=== PATIENT | male | born 1935 | race Caucasian/White ===

== ENCOUNTER 2017-12-20 20:37 | Inpatient (IN) | payer MEDICARE, OTHER ==
[2017-12-20] MEDS ORDERED: NS 0.9% 1000 ML* 1,000 ML IV ONE (21:32)
--- NOTE | 2017-12-20 22:00 | RAD ---
HISTORY: Altered mental status COMPARISONS: June 30, 2017 VIEWS: 1: frontal portable view of the chest at 9:43 PM. The patient is slightly obliqued to the right. FINDINGS: LINES AND TUBES: None. CARDIOMEDIASTINAL SILHOUETTE: The cardiomediastinal silhouette is stable. PLEURA: The costophrenic angles are sharp. No pleural abnormalities are noted. LUNG PARENCHYMA: The lung volumes are low. The lungs are clear. ABDOMEN: The upper abdomen is clear. There is no subphrenic gas. BONES AND SOFT TISSUES: No bone or soft tissue abnormalities are noted. IMPRESSION: LOW LUNG VOLUMES. NO ACTIVE CARDIOPULMONARY DISEASE.
[2017-12-20 22:15] LABS: INR 0.89 (0.77-1.02)
[2017-12-20 22:27] LABS: EGFR Non-African American 102.4 (>60)
[2017-12-20 22:32] LABS: ABS Basophils 0 10^3/ul (0-0.2); ABS Eosinophils 0 10^3/ul (0-0.6); ABS Lymphocytes 0.5 10^3/ul (1.0-4.8); ABS Monocytes 0.3 10^3/ul (0-0.8); ABS Neutrophils 2.6 10^3/ul (1.5-7.7); ABS Nucleated RBC 0 10^3/ul; Eosinophil % 0.5 % (0-6); Hematocrit 41 % (42-52); Hemoglobin 13.8 g/dl (14.0-18.0); Lymphocyte % 14.9 % (25-47); Mean Corpuscular HGB Conc 33 g/dl (31-36); Mean Corpuscular Hemoglobin 30 pg (27-31); Mean Corpuscular Volume 91 fL (80-94); Mean Platelet Volume 10.9 um3 (7.4-10.4); Nucleated Red Blood Cells % 0.3; Platelet Count 93 10^3/ul (150-450); Red Blood Count 4.54 10^6/ul (4.0-5.4); Red Cell Distribution Width 18 % (10.5-15); White Blood Count 3.5 10^3/ul (3.5-10.8)
[2017-12-20 22:51] LABS: Urine Appearance Clear; Urine Blood Negative (Negative); Urine Color Yellow; Urine Ketones Trace (Negative); Urine Protein Negative (Negative); Urine Specific Gravity 1.017 (1.010-1.030); Urine Urobilinogen Positive (Negative)
[2017-12-21] MEDS ORDERED: Docusate CAP* 100 MG PO PRN (00:35)
[2017-12-21] MEDS ORDERED: Al Hydrox/Mg Hydrox/Simet LIQ* 30 ML UDC PO PRN (00:35)
[2017-12-21] MEDS ORDERED: Senna TAB PO PRN (00:35)
[2017-12-21] MEDS ORDERED: Acetaminophen TAB* 325 MG PO PRN (00:35)
[2017-12-21] MEDS ORDERED: Ondansetron INJ* 2 MG/ML VIAL IV PRN (00:35)
[2017-12-21] MEDS: Aspirin EC TAB* 81 MG TAB.EC PO SCH ×2 (02:50→09:01)
--- NOTE | 2017-12-21 03:36 | HP ---
CC: Brooks Turner MD * HISTORY AND PHYSICAL: DATE OF ADMISSION: 12/21/17 TIME OF EVALUATION: 0300 PRIMARY CARE PHYSICIAN: Brooks Turner MD CHIEF COMPLAINT: Altered mental status. HISTORY OF PRESENT ILLNESS: This is an 82-year-old male with past medical history of Parkinson's, who presents to the emergency room with his for concern of altered mental status. She states in the past week he has become more drowsy, respond and weak. She states he has been complaining of feeling "oozy" with weakness. He did fall in the bathroom on the . He has been having issues with his activities of daily living. His is now having to help him, get ready and bathe and this is all new in the past week. She also has noticed that his speech and interaction has been more challenging and he is become more confused as well. Normally, he was reading. Now, he has not been reading at all. There were concerns in this past week when the VNS nurse came out to check his blood pressure, it was 76/46, had decided to discontinue the water pill, otherwise no changes in his medications. There has not been any concerns of him eating or choking on his food. He has been doing relatively well with that. He has had some right knee pain, otherwise denies any pain. No URI illness. No fever. No nausea, vomiting, or diarrhea. No urinary incontinence, although the feels like he does not go to the bathroom that often. Otherwise, review of system is limited, but negative. PAST MEDICAL HISTORY: 1. Parkinson's disease followed by Dr. Rouse. 2. Hyperlipidemia. MEDICATIONS: 1. notes he is on carbidopa and levodopa, but is unclear on the dosage. 2. He is on a cholesterol medication. ALLERGIES: No known drug allergies. SOCIAL HISTORY: Patient lives at home with his , Jessica, who is his healthcare proxy. He ambulates with a walker. No history of smoking. He drinks a glass of wine per day. CODE STATUS: He is a DNR/DNI. We will have him fill out the MOLST form. He is a retired medical record librarian. FAMILY HISTORY: Mother at age 50 from an AL. Father in 70s from liver failure. REVIEW OF SYSTEMS: A 14-point review of system as mentioned in the HPI, otherwise negative. PHYSICAL EXAMINATION GENERAL: No acute distress, elderly man with his at the bedside. VITAL SIGNS: Temp 97.1, pulse rate 53, respiratory rate 17, oxygen saturation 97 % on room air, blood pressure 105/76. HEENT: Head: Normocephalic. Pupils are equal and reactive, anicteric. Oropharynx: Mucous membranes moist. NECK: Supple. No lymphadenopathy. RESPIRATORY: Diminished breath sounds. No wheezing, rhonchi, or rales. CARDIAC: Regular rate and rhythm. Soft systolic murmur heard throughout most prominent at the left sternal base. ABDOMEN: Soft, nontender, and nondistended. EXTREMITIES: No clubbing. He has +1 edema, distant pulses. NEUROLOGIC: He is alert and oriented x3. He has generalized symmetric weakness. He has delayed in his speech, but no obvious focal deficit. LABORATORY DATA: White count 3.5, hemoglobin 13.8, hematocrit 41, platelets 93. INR 0.89. Sodium 140, potassium 3.9, chloride 103, bicarb 32, BUN 37, creatinine 0.73, glucose 116, AST 99. Troponin is 0. Urine shows trace ketones. Urine tox is unremarkable. RADIOGRAPHIC DATA: Head CT, there is a 7-mm left thalamic small vessel infarct of indeterminate age, not present on 06/07/16. No hemorrhage, no mass. Chest x-ray, low lung volume, no active cardiopulmonary disease. EKG shows sinus bradycardia with first-degree heart block. ASSESSMENT AND PLAN: This is an 82 year old male with a past medical history of Parkinson's disease, who presents to the emergency room with decline in his ADLs and speech, found to have small infarct indeterminate age. 1. Weakness and decline. Assessment: The patient appears to be overall declining with his ADLs and his speech pattern. He does have an infarct seen on his CAT scan of indeterminate age. It is unclear if this is the inciting event. It is certainly could correspond with it or this is a progression of his Parkinson's. Plan: We will admit him to telemetry overnight. We will start him on a baby aspirin. We will put in for med rec and consult Neurology in the morning for further evaluation. We will also do a bedside nursing swallow, order a PT/OT and PMRU eval. We will hold off and order an MRI as it is not available tomorrow and also order a bladder scan q.6. 2. Chronic medical problems: Parkinson's. As mentioned, we will need to call in for med rec to order his appropriate dose of his carbidopa and levodopa. 3. Hyperlipidemia. We will check a lipid panel. We will put him on atorvastatin low dose in place of his simvastatin for now. 4. FEN: Bedside swallows as well as heart healthy diet. 5. DVT prophylaxis: The patient scores high risk. Placed him on heparin subcu t.i.d. 6. Code status: He confirms he is a DNR/DNI. We will have him fill up the MOLST form. PATIENT TIME: Greater than 60 minutes spent doing the history and physical, more than half the time spent in direct patient contact. [id number]/[facility] #: [id number] ANGY
[2017-12-21] MEDS: Heparin VIAL(*) 5000 UNITS/ML VIAL (FIVE THOUSAND) SUBCUT SCH ×3 (06:02→20:23)
--- NOTE | 2017-12-21 10:56 | RAD ---
Indication: Weakness, confusion. Comparison: June 07, 2016 MRI. Technique: Noncontrast CT vertex of skull through foramen magnum. Report: Moderate prominence of the cerebral sulci reflecting atrophy. Proportional mild prominence of the lateral ventricles. Patent basal cisterns. Decreased density in the periventricular and subcortical white matter while non-specific is most likely due to chronic microangiopathy. Negative for gann matter white matter obscuration, intra or extra-axial hemorrhage, or mass effect. Dense LEFT ocular lens consistent with cataract. Clear visualized paranasal sinuses and mastoid air spaces. No suspicious calvarial or skull base lesions. Unremarkable scalp. IMPRESSION: Involutional change and stigmata of chronic small vessel ischemic disease. No acute intracranial process evident.
[2017-12-21] MEDS: Carbidopa/Levodop 25/100 MG TAB(*) PO SCH (12:35)
[2017-12-21] MEDS: NS 0.9% 1000 ML* 1,000 ML IV SCH (12:59)
--- NOTE | 2017-12-21 14:20 | PN ---
Subjective Date of Service: 12/21/17 Interval History: Patient not oriented and rather lethargic this AM. Denies pain but it is not clear if he is understanding questioning. Discussed with Family, concerned about 40 pound weight loss over the course of the last 6 months. Had slow progressive decline over the last 2 years and then precipitous decline within the last 2 days. Patient had a colonoscopy previously but his does not know when it was and doesn't think there were significant findings but is not sure. Family History: Unchanged from Admission Social History: Unchanged from Admission Past Medical History: Unchanged from Admission Objective Active Medications: Acetaminophen (Tylenol Tab*) 650 mg PO Q4H PRN PRN Reason: FEVER/PAIN Al Hydrox/Mg Hydrox/Simethicone (Maalox Plus*) 30 ml PO Q6H PRN PRN Reason: INDIGESTION Aspirin (Aspirin Ec Low Dose*) 81 mg PO DAILY [facility] Last Admin: 12/21/17 09:01 Dose: 81 mg Atorvastatin Calcium (Lipitor*) 20 mg PO 1700 [facility] Carbidopa/Levodopa (Sinemet 25/100 Tab(*)) 1.5 tab PO 1630 [facility] Carbidopa/Levodopa (Sinemet 25/100 Tab(*)) 2.5 tab PO 0800,1200 [facility] Last Admin: 12/21/17 12:35 Dose: 2.5 tab Carbidopa/Levodopa (Sinemet Cr 50/200(*)) 1 tab.cr PO BEDTIME [facility] Docusate Sodium (Colace Cap*) 100 mg PO BID PRN PRN Reason: CONSTIPATION Heparin Sodium (Porcine) (Heparin Vial(*)) 5,000 units SUBCUT Q8HR [facility] Last Admin: 12/21/17 06:02 Dose: 5,000 units Sodium Chloride (Ns 0.9% 1000 Ml*) 1,000 mls @ 75 mls/hr IV PER RATE [facility] Last Admin: 12/21/17 12:59 Dose: 75 mls/hr Ondansetron HCl (Zofran Inj*) 4 mg IV Q4H PRN PRN Reason: NAUSEA/VOMITING Senna (Senokot Tab*) 1 tab PO BID PRN PRN Reason: CONSTIPATION Vital Signs - 8 hr 12/21/17 12/21/17 07:26 08:00 Temperature 97.0 F Pulse Rate 71 Respiratory 16 16 Rate Blood Pressure 104/62 (mmHg) O2 Sat by Pulse 97 Oximetry Oxygen Devices in Use Now: None Appearance: Patient is an 82yo male who appears stated age and is sitting in the bed in NAD with a visible tremor in his B/L UE. Eyes: No Scleral Icterus, PERRLA Ears/Nose/Mouth/Throat: NL Teeth, Lips, Gums, Clear Oropharnyx, Mucous Membranes Moist Neck: NL Appearance and Movements; NL JVP, Trachea Midline Respiratory: Symmetrical Chest Expansion and Respiratory Effort, Clear to Auscultation Cardiovascular: NL Sounds; No Murmurs; No JVD, RRR, No Edema Abdominal: NL Sounds; No Tenderness; No Distention, No Hepatosplenomegaly Lymphatic: No Cervical Adenopathy Extremities: No Edema, No Clubbing, Cyanosis Skin: No Rash or Ulcers, No Nodules or Sclerosis Neurological: - - Slight right sided facial droop. Left sided biceps reflex 3+, Right sided 2+. Patellar and achilles 1+ B/L. Not able to participate in strength or sensory testing. Result Diagrams: 12/20/17 21:58 12/20/17 21:58 Assess/Plan/Problems-Billing Assessment: Patient is an 82yo male with a PMH for Parkinson's, HLD, HTN who presents with an acute deterioration in his mental status and physical capabilities within the past week. Patient is not improving today and is scheduled for an MRI tomorrow to assess for CVA. - Patient Problems (1) Altered mental status Current Visit: Yes Status: Acute Code(s): R41.82 - ALTERED MENTAL STATUS, UNSPECIFIED SNOMED Code(s): 129244881 Comment: Appreciate Neurology input. Patient has had an acute decrease in his mental and physical capability not consistent with the general clinical course of idiopathic parkinson's disease. Small thalamic CVA read on CT overnight but overread today by radiologist and neurologist. No infections evident on CXR, UA, Skin. CRP and ESR pending. MRI brain tomorrow. Recent decrease in Simemet not likely cause of deterioration. B12, Folate, TSH pending. (2) Parkinsons disease Current Visit: Yes Status: Acute Code(s): G20 - PARKINSON'S DISEASE SNOMED Code(s): 66961166 Comment: Continue Simemet at home dose. Abrupt decline in congnitive functioning not consistent with progression of parkinson's. Follows with Dr. Rouse outpatient. (3) Hyperlipidemia Current Visit: Yes Status: Acute Code(s): E78.5 - HYPERLIPIDEMIA, UNSPECIFIED SNOMED Code(s): 59081584 Comment: Continue Atorvastatin. Lipid Profile pending. (4) Hypertension Current Visit: Yes Status: Acute Code(s): I10 - ESSENTIAL (PRIMARY) HYPERTENSION SNOMED Code(s): 11184960 Comment: History of HTN. Has been hypotensive recently with HCTZ being stopped. (5) Thrombocytopenia Current Visit: Yes Status: Acute Code(s): D69.6 - THROMBOCYTOPENIA, UNSPECIFIED SNOMED Code(s): 517512736 Comment: Platelet count of 93K. Decreased from ~150K in august. Consider discontinuing heparin and ASA if further decrease. (6) DVT prophylaxis Current Visit: Yes Status: Acute Code(s): YBH6424 - SNOMED Code(s): 122473391 Comment: Heparin SubQ. Consider stopping if continued decrease in platelets. (7) DNR (do not resuscitate) Current Visit: Yes Status: Acute Status and Disposition: Admitted inpatient. Discharge when medically stable. May need rehab.
[2017-12-21] MEDS ORDERED: Carbidopa/Levodop 25/100 MG TAB(*) PO SCH (16:30)
[2017-12-21] MEDS: Atorvastatin* 20 MG TAB PO SCH (17:18)
[2017-12-21] MEDS: Carbidopa/Levodop CR 50/200(*) TAB.CR PO SCH (20:26)
--- NOTE | 2017-12-21 21:21 | CONS ---
CC: Dr. uTrner; Dr. Rouse * NEUROLOGY CONSULTATION: DATE OF CONSULT: 12/21/17 REQUESTING PHYSICIAN: Nay Marmolejo MD PRIMARY CARE PHYSICIAN: Dr. Turner. OUTPATIENT NEUROLOGIST: Dr. Rouse. REASON FOR CONSULT: Progressive global decline in particular in mental status. HISTORY OF PRESENT ILLNESS: Kevin Redd is an 82-year-old man with a history of Parkinson's disease, previously treated by Dr. Kessler and now under the care of Dr. Rouse, who presented to the emergency department with his yesterday with progressive decline in his mental status as well as some of his mobility. She states that in the past several days to a week, he is become more lethargic and overall weak. Yesterday, he went upstairs to get rest and when she went upstairs to find him, he was just sitting on the bed, staring straight ahead. Over the past week, she has been having to help him get dressed and also to bathe, which is all new. He seems to be more confused to her as well and she described a period of time where he thought he was supposed to be going to a concert, but was disoriented as to when the concert was going to occur. He previously enjoyed reading and she does not think he is comprehending this any longer. Apparently, he has visiting nursing services and there was some hypotension documented as well and Dr. Marmolejo's note indicates blood pressure was 76/46. Apparently, a diuretic was discontinued. He has otherwise been ambulating with his walker, but quite slowly. In terms of his history of Parkinson's disease, he was initially evaluated in 2015 because of a tremor. He was started on carbidopa/levodopa at that time and the dose has been progressively increased secondary to his symptoms. His states that they feel it was helpful for the tremor which she describes as more of an action than a rest tremor. However, he has had increasing postural instability and was having falls, which necessitated him starting to use a walker as of July of last year. At his last visit with Dr. Rouse on 12/11/17 , he was taking carbidopa/levodopa 25/100 mg 3 tablets at 8 a.m., 2-1/2 tablets at 12 p.m. and 2 tablets at 4:30 p.m. His at that time stated that he seemed more confused and seemed to be doing worse and so Dr. Rouse decreased the morning dose to 2-1/2 tablets and the nighttime dose to 1-1/2 tablets, but also added extended release carbidopa/levodopa 50/200 mg at nighttime. His states that she initially thought this was helpful, but then over the past 2 days, he seemed to be getting more restless at night and was getting up early for unclear reasons. She also mentions that he has had a 30-pound unexplained weight loss over the past 6 months despite a normal appetite. Since he has been admitted, he has not received any carbidopa/levodopa yet because the was unclear on the dosage he was taking during his admission and that he had to wait until [employer] open this morning in order to confirm the dosage. PAST MEDICAL HISTORY: 1. Parkinson's disease. 2. Hyperlipidemia. 3. Osteoarthritis. HOME MEDICATIONS: 1. Simvastatin 10 mg at bedtime. 2. Carbidopa/levodopa 25/100 mg 2.5 in the morning, 2.5 at noon, and 1.5 at dinner. 3. Carbidopa/levodopa CR 50/200 mg 1 tablet at bedtime which was started around 12/11/17. 4. Vitamin D 400 units in the morning. 5. Hydrochlorothiazide 25 mg is also listed on his med rec, but this has not been confirmed yet. In-hospital medications ordered include the above, but also aspirin 81 mg daily which he received down in the ER as well as this morning. He also received a liter of normal saline, but is not on fluids any longer. ALLERGIES: No known drug allergies. FAMILY HISTORY: Mother reportedly from myocardial infarction at age 50 and father in his 70s from liver failure. SOCIAL HISTORY: He lives with his , Jessica who is also his healthcare proxy. He is a retired librarian head. He never smoked cigarettes. His reports he drinks a glass of scotch nightly after she goes to bed, but she does not think it is excessive otherwise. REVIEW OF SYSTEMS: The patient is otherwise not able to significantly contribute, but when questioned directly denies any headache, chest pain, or breathing difficulties. PHYSICAL EXAM: Vital Signs: Temperature 97 degrees, blood pressure 104/62, heart rate 71, oxygen saturation is 97% on room air. He had some low blood pressures measured around 10 p.m. last night at 93/49 and 85/50 with heart rates in the 50s at that time. On general examination, he was sleeping in his hospital bed and woke easily to voice. He has significant hypomimia and mostly lies with his mouth hanging half open. He was able to contribute minimally to the history. He was able to answer with one word answers. For me, he was not able to state his date of or why he was in the hospital or his full name. His skin was warm to touch. There is no significant lower extremity edema. His heart is in regular rate and rhythm with a soft systolic ejection murmur. His lungs appeared clear anteriorly to auscultation. On neurologic examination , his mental status is as described above. His speech is difficult to assess as he has minimal speech output. He was able to follow some simple commands of the neurologic exam. His pupils were equal, round and reactive from 3 to 2 mm bilaterally. He seems to have difficulty initiating smooth pursuits and they were choppy, but full in all directions without any obvious nystagmus. His visual rodrigues were full to threat, but he had difficulty cooperating with either finger counting or confrontational testing. He has significant facial hypomimia with decreased blink and decreased spontaneous facial expression. His facial activation with smile appears mostly symmetric. His mucous membranes are very dry, though his tongue is midline and the palate appears to elevate symmetrically. On motor examination, he has cogwheeling in both upper extremities with some rest tremor noted in the right arm. Both upper extremities are antigravity, but he cannot cooperate with formal strength testing. He was not able to lift either leg antigravity off the bed, but he withdrew both lower extremities briskly to any noxious stimulation. Sensation was intact throughout to noxious stimulation. Reflexes were 2 to 3+ in the upper extremities, 2+ at the knees, difficult to elicit at the ankles. His toes were somewhat difficult to interpret due to withdrawal. When asked to perform [id number], he was not able to touch the examiner's finger with his finger and it was not clear if this was a perceptual difficulty or motor difficulty. He was not ambulated. DIAGNOSTIC STUDIES/LAB DATA: His CBC is notable for hematocrit of 41, hemoglobin of 13.8, platelets of 93 with large platelets noted to be present. The hematopathologist's interpretation is pending. His RDW is elevated at 18. There is no prior CBC in the electronic medical record for comparison. INR is normal. His chemistry panel is notable for a BUN of 37, elevated BUN to creatinine ratio 50.7, hemoglobin A1c of 6, elevated AST of 99, ALT of 37, and alkaline phosphatase of 108. His ammonia was 29. He had normal protein levels. In August 2017, his vitamin B12 was measured and was 243. Urinalysis showed no evidence for infection, but showed trace ketones, positive urobilinogen, squamous epithelial cells present, and hyaline cast is present as well as ascorbic acid. His toxicology screen was negative. I note that a paraneoplastic panel was sent on the serum in August 2017 and this was negative. His brain CT was personally reviewed and shows diffuse atrophy which to my eye appears to be more prominent in the posterior head regions with evidence of some small vessel disease. The remote radiologist overnight interpreted an indeterminate age infarct in the left thalamus, but I think that this is related to averaging the ventricular space on the slice just below the level of the thalamus on this scan. Our radiologist this morning did not interpret any specific infarcts on the CT scan. IMPRESSION AND PLAN: Kevin Redd is an 82-year-old man with a history of Parkinson's disease with progressive decline over the past 1-1/2 to 2 years. He was admitted now with encephalopathy and decline in his ADLs. Compared to previous exam documented by Dr. Rouse in the outpatient record, he appears significantly more parkinsonian to me this morning and this could be related to missed doses of medication secondary to the medication reconciliation not being complete because of uncertainty and dosing at the time that he was admitted. I have spoken with his nurse who is going to give him his noon time dose of carbidopa/levodopa. His CT scan did raise some question of whether there has been a thalamic infarct which could be responsible for his recent decline. We will clarify this further with an MRI scan of the brain tomorrow morning, though I do not think that there is a convincing evidence of a recent infarct on that scan. Otherwise, his picture is notable for some periods of hypotension as well as significant postural instability by history according to the and I questioned whether he could have a Parkinson's-plus syndrome such as multisystem atrophy. Finally, his CBC showed thrombocytopenia and it is unclear whether this is an acute or chronic problem. He has also had an unexplained weight loss recently and it is also unclear whether this is pertinent to his overall picture as well. In addition to the MRI of the brain, I will check a sed rate and a CRP. I have also asked Gerson Hendrix to start him on some gentle fluids because of the profile of his chemistry panel. Tomorrow, we will get baseline CBC from Dr. Turner's office for comparison. Going forward, we will see whether he will benefit from adjustment of his Parkinson's medications as well. [id number]/[facility] #: [id number] ANGY
[2017-12-22] MEDS ORDERED: Acetaminophen SUPP* 650 MG SUPP PR PRN (00:24)
[2017-12-22] MEDS: NS 0.9% 1000 ML* 1,000 ML IV SCH ×4 (03:19→21:34)
[2017-12-22] MEDS: Heparin VIAL(*) 5000 UNITS/ML VIAL (FIVE THOUSAND) SUBCUT SCH (05:40)
[2017-12-22 05:44] LABS: ABS Basophils 0 10^3/ul (0-0.2); ABS Eosinophils 0 10^3/ul (0-0.6); ABS Lymphocytes 0.6 10^3/ul (1.0-4.8); ABS Monocytes 0.6 10^3/ul (0-0.8); ABS Neutrophils 3.9 10^3/ul (1.5-7.7); ABS Nucleated RBC 0 10^3/ul; Eosinophil % 0.2 % (0-6); Hematocrit 35 % (42-52); Hemoglobin 11.8 g/dl (14.0-18.0); Lymphocyte % 12.2 % (25-47); Mean Corpuscular HGB Conc 34 g/dl (31-36); Mean Corpuscular Hemoglobin 30 pg (27-31); Mean Corpuscular Volume 90 fL (80-94); Nucleated Red Blood Cells % 0; Platelet Count 96 10^3/ul (150-450); Red Blood Count 3.92 10^6/ul (4.0-5.4); Red Cell Distribution Width 19 % (10.5-15); White Blood Count 5.2 10^3/ul (3.5-10.8)
[2017-12-22 06:01] LABS: EGFR Non-African American 85.9 (>60)
--- NOTE | 2017-12-22 08:19 | PN ---
Subjective Date of Service: 12/22/17 Interval History: Mr. Redd is only responsive to noxious stimuli this morning. Family History: Unchanged from Admission Social History: Unchanged from Admission Past Medical History: Unchanged from Admission Objective Active Medications: Acetaminophen (Tylenol Supp*) 650 mg MO Q6H PRN Al Hydrox/Mg Hydrox/Simethicone (Maalox Plus*) 30 ml PO Q6H PRN Aspirin (Aspirin Ec Low Dose*) 81 mg PO DAILY NORA Atorvastatin Calcium (Lipitor*) 20 mg PO 1700 NORA Carbidopa/Levodopa (Sinemet 25/100 Tab(*)) 1.5 tab PO 1630 NORA Carbidopa/Levodopa (Sinemet 25/100 Tab(*)) 2.5 tab PO 0800,1200 NORA Carbidopa/Levodopa (Sinemet Cr 50/200(*)) 1 tab.cr PO BEDTIME NORA Docusate Sodium (Colace Cap*) 100 mg PO BID PRN Heparin Sodium (Porcine) (Heparin Vial(*)) 5,000 units SUBCUT Q8HR NORA Sodium Chloride (Ns 0.9% 1000 Ml*) 1,000 mls @ 75 mls/hr IV PER RATE NORA Ondansetron HCl (Zofran Inj*) 4 mg IV Q4H PRN Senna (Senokot Tab*) 1 tab PO BID PRN Vital Signs: Temp Pulse Resp BP Pulse Ox 97.1 F 72 26 108/55 96 12/22/17 07:40 12/22/17 07:40 12/22/17 03:23 12/22/17 07:40 12/22/17 07:40 Oxygen Devices in Use Now: None Appearance: Male lying in bed, unresponsive in NAD Eyes: No Scleral Icterus Ears/Nose/Mouth/Throat: - - mucous membranes dry Neck: Trachea Midline Respiratory: Symmetrical Chest Expansion and Respiratory Effort, Clear to Auscultation Cardiovascular: NL Sounds; No Murmurs; No JVD, No Edema Abdominal: NL Sounds; No Tenderness; No Distention Lymphatic: No Cervical Adenopathy Extremities: No Edema Skin: No Rash or Ulcers Neurological: - - Responsive only to noxious stimuli, pupils equal and reactive , neck stiff Nutrition: Taking PO's Result Diagrams: 12/22/17 05:24 12/22/17 05:24 Assess/Plan/Problems-Billing Assessment: Mr. Redd is an 82yo male with a PMH for Parkinson's, HLD, HTN who presents with an acute deterioration in his mental status and physical capabilities within the past week. - Patient Problems (1) Altered mental status Comment: - Continues to decline, now unable to take po. Temp to 100.8 overnight with concern for nuchal rigidity. - Appreciate neurology eval this AM. Plan for NG tube placement for consistent administration of sinemet as abrupt withdrawal can lead to neuroleptic malignant syndrome and explain AMS, fever, and rigidity (CK pending). Anesthesiology consulted for LP as well. - No evidence of infection on arriavl. ESR/CRP normal. UA neg, cxray neg. - No electrolyte abnormalities. B12, folate and thyroid studies normal. - Appreciate Neurology consult on admission. Patient has had an acute decrease in his mental and physical capability not consistent with the general clinical course of idiopathic parkinson's disease. Recent decrease in Simemet not likely cause of deterioration. CT brain with no abnormality. MRI brain pending. (2) Parkinsons disease Comment: - Continue Simemet at home dose, NG to be placed this AM. Abrupt decline in congnitive functioning not consistent with progression of parkinson's. - Follows with Dr. Rouse outpatient. (3) Hyperlipidemia Comment: - Continue Atorvastatin when taking po. (4) Hypertension Comment: - SBP 110s. - Has been hypotensive recently, HCTZ has been stopped (5) Thrombocytopenia Comment: - Stable. - Consider discontinuing heparin and ASA if < 50K. (6) DVT prophylaxis Comment: - Heparin SubQ held for planned LP. - Consider stopping if plt < 50K. (7) DNR (do not resuscitate) Comment: Status and Disposition: Admitted inpatient. Anticipate rehab/NH at discharge based on clinical course thus far.
[2017-12-22] MEDS ORDERED: Carbidopa/Levodop 25/100 MG TAB(*) PO ONE ×2 (09:20→14:00)
[2017-12-22] MEDS: Aspirin EC TAB* 81 MG TAB.EC PO SCH (09:34)
[2017-12-22] MEDS: Carbidopa/Levodop 25/100 MG TAB(*) PO SCH (11:30)
[2017-12-22] MEDS ORDERED: Carbidopa/Levodop 25/100 MG TAB(*) PO SCH ×2 (12:00→16:30)
--- NOTE | 2017-12-22 13:00 | PN ---
NEUROLOGY FOLLOWUP NOTE: DATE OF SERVICE: 12/22/17 HISTORY: The patient appears worse this morning. Eleonora Murphy called me this morning to say that he i s essentially unresponsive to sternal rub and had low grade fever overnight to 100.8. In reviewing h is MAR, he did receive all doses of his Sinemet since noon yesterday, but has not yet received the mo rning dose of Sinemet because of his mental status. MEDICATIONS: 1. Tylenol 650 q.6 p.r.n. 2. Maalox p.r.n. 3. Aspirin 81 mg daily. 4. Atorvastatin 20 mg daily. 5. Carbidopa/levodopa 2.5 tablets at 8 a.m. and 12 p.m., and fwk-goj-o-half tablet at 4:30 p.m. in a ddition to controlled release 50/200 mg at bedtime. The last dose of carbidopa/levodopa was the bedt ivonne dose last evening. 6. Colace 100 mg twice daily as needed. 7. Heparin. 8. Zofran as needed. 9. Senna as needed. PHYSICAL EXAMINATION: Vital Signs: Temperature this morning was 97.1 with T-max of 100.[address] night. His blood pressure is 108/55 with heart rate of 72, oxygen saturation 96% on room air. Hi s lowest blood pressure was 91/47 measured at 3:15 p.m. yesterday afternoon. On general examination, he is lying with his eyes closed in his hospital bed. An ICU nurse had just finished placing another IV because presumably the one in his right side infiltrated and he got a cou ple of facial grimaces, but otherwise no significant reaction and no significant eye opening. Heart is in regular rate and rhythm. His mucous membranes are dry. He has swelling of his right arm and h and. He has intermittent twitching in his feet bilaterally. When I first approached him and put my h and on his shoulder and loudly stated his name, he briefly opened his eyes. but then closed them agai n. He is nonverbal this morning. He is not following any commands. He actively resists eye opening , but his pupils are equal, round and reactive briskly from 4 to 2 mm bilaterally. He was able to tr ack my finger horizontally and there was no obvious nystagmus. His mouth hangs open. His neck is st iff and I cannot flex it off the pillow. His upper extremities have relatively normal tone today wit h just a little bit of tremor. The lower extremities are more rigid and there is intermittent jerkin g noted in his feet bilaterally. When his leg is flexed passively at the hip and the knee, he shows some discomfort, but his head does not come up off the bed. He briskly withdraws and grimaces to nox ious stimulation in all 4 extremities. His reflexes are 2 to 3+ in the upper extremities, 2+ at the knees. No clonus at the ankles. Toes are difficult to evaluate secondary to his withdrawal. DATA: His CRP was essentially normal at 5.63. ESR 29. TSH 6.76 with free T4 of 0.96. B12 of 815. Folate 8.75. His chemistry panel this morning is notable for BUN of 33, creatinine of 0.85 with an elevated BUN to creatinine which is still elevated at 38.8, but improved from yesterday. His platele ts are 96 from 93 yesterday, hematocrit 35, hemoglobin 11.8, normal white count. His urine culture s howed no growth. IMPRESSION: Kevin Redd is an 82-year-old man with Parkinson disease who has had a decline in his mental status as an outpatient and was admitted to the hospital on 12/20/17 in the evening and has n ow had further decline in his condition. He had a low grade fever and has evidence of neck and lower extremity muscle rigidity as well as some myoclonic movements. He is not responsive verbally today and not following commands. The differential for his presentation includes a neuroleptic malignant l jacqueline syndrome secondary to reduction in his Sinemet dose as well as missed doses upon entering the [facility], but we also need to consider a ATTORNEY GENERAL infection or possibly an unusual presentation of seizures. I have changed his Sinemet dosing back to what it was on 12/11/17, namely carbidopa/levodopa 25/100 mg 3 tablets at 8 a.m., 2.5 tablets at noon and 2 tablets at 4:30 p.m. I have spoken with nursing an d with Eleonora Murphy and we are going to place a NG tube in order to administer these medications. I pope ve added on a CK to his morning labs to check for evidence of rhabdo as I also note that his urine is dark. We will restart fluids on him. I will check an EEG and we have also contacted Anesthesiology for a lumbar puncture. His happened to call again while I was in the room and I discussed this differential with her. She stated he does have an advance directive that he would not want anything heroic, but at this point she is comfortable with the workup that is planned. [id number]/[facility] #: [id number]
--- NOTE | 2017-12-22 14:06 | RAD ---
HISTORY: Stroke COMPARISONS: June 07, 2016 TECHNIQUE: The following sequences were obtained of the head: Sagittal T1-weighted images, axial T2-weighted images, axial FLAIR images, axial T1-weighted images. Additionally, axial diffusion-weighted images were obtained with calculated apparent diffusion coefficients. FINDINGS: HEMORRHAGE/INFARCT: There is no hemorrhage or acute infarct. MASSES/SHIFT: There is no mass or shift. EXTRA-AXIAL SPACES/MENINGES: There are no extra-axial fluid collections. SULCI AND VENTRICLES: There is diffuse and proportional enlargement of the sulci and ventricles. CEREBRUM: There is diffuse and confluent elevated T2/FLAIR signal in the periventricular and subcortical white matter. BRAINSTEM: There is elevated T2/FLAIR signal in the pontine white matter. CEREBELLUM: There are no focal parenchymal abnormalities. The cerebellar tonsils are normal in size and position. SELLA: The sella is normal. PINEAL: The pineal region is clear. CP ANGLE/TEMPORAL BONES: The labyrinthine structures are grossly normal. VESSELS: Normal flow-voids are noted within the visualized vertebral vasculature. DIFFUSION ABNORMALITIES: There are no diffusion abnormalities. PARANASAL SINUSES/MASTOIDS: The paranasal sinuses are clear. ORBITS: The orbits are unremarkable. BONES AND SOFT TISSUE: No bone or soft tissue abnormalities are noted. OTHER: None IMPRESSION: 1. DIFFUSE INVOLUTIONAL CHANGE. 2. CHRONIC SMALL VESSEL ISCHEMIC CHANGES. 3. NO RESTRICTED DIFFUSION TO SUGGEST ACUTE INFARCT.
[2017-12-22] MEDS: Atorvastatin* 20 MG TAB PO SCH (21:27)
[2017-12-22] MEDS: Carbidopa/Levodop CR 50/200(*) TAB.CR PO SCH (21:30)
[2017-12-23] MEDS ORDERED: LORazepam INJ* 2 MG/ML 1 ML VIAL IV ONE (02:35)
[2017-12-23] MEDS ORDERED: LORazepam INJ* 2 MG/ML 1 ML VIAL ONE (02:37)
--- NOTE | 2017-12-23 03:30 | EEG ---
ELECTROENCEPHALOGRAPHY: DATE OF STUDY: 12/22/17 - ROOM #[id number] LOCATION: The patient is an inpatient. ORDERING PHYSICIAN: Sandra Stern MD CLINICAL PROBLEM: This is an 82-year-old man with a history of Parkinson's disease, who was admitted with decline in mental status. Overnight, he worsened and is essentially unresponsive with muscle stiffness. He also had a low-grade fever overnight. EEG is requested to evaluate for epileptiform abnormalities. MEDICATIONS: 1. Senna. 2. Ondansetron. 3. Docusate. 4. Maalox. 5. Acetaminophen. 6. Atorvastatin. 7. Sinemet. REPORT: The majority of the EEG is characterized by loss of the usual anterior to posterior voltage and frequency gradients. Instead, the background is characterized by polymorphic slowing in the 2 to 6 Hz range. With stimulation, there is emergence of some identifiable gradients in terms of anterior to posterior voltage and frequency gradients. There is a slow and poorly sustained posterior rhythm of 5 Hz noted at this time. Throughout the recording, there were no epileptiform discharges or focal features. CLINICAL IMPRESSION: This is an abnormal EEG due to loss of the expected gradients and diffuse mixed frequency slowing for the majority of the recording. When the patient is stimulated, there is some emergence of gradients and a slow posterior rhythm of approximately 5 Hz. These findings are suggestive of a moderate, nonspecific, diffuse encephalopathy. There are no epileptiform abnormalities. [id number]/[facility] #: [id number] MTDD
[2017-12-23] MEDS: NS 0.9% 1000 ML* 1,000 ML IV SCH ×3 (03:53→18:05)
[2017-12-23 06:11] LABS: ABS Basophils 0 10^3/ul (0-0.2); ABS Eosinophils 0 10^3/ul (0-0.6); ABS Lymphocytes 0.6 10^3/ul (1.0-4.8); ABS Monocytes 0.9 10^3/ul (0-0.8); ABS Neutrophils 4.6 10^3/ul (1.5-7.7); ABS Nucleated RBC 0 10^3/ul; Eosinophil % 0.1 % (0-6); Hematocrit 34 % (42-52); Hemoglobin 11.3 g/dl (14.0-18.0); Mean Corpuscular HGB Conc 33 g/dl (31-36); Mean Corpuscular Hemoglobin 30 pg (27-31); Mean Corpuscular Volume 91 fL (80-94); Mean Platelet Volume 9.7 um3 (7.4-10.4); Nucleated Red Blood Cells % 0.1; Platelet Count 62 10^3/ul (150-450); Red Blood Count 3.77 10^6/ul (4.0-5.4); Red Cell Distribution Width 18 % (10.5-15); White Blood Count 6.1 10^3/ul (3.5-10.8)
[2017-12-23 06:17] LABS: EGFR Non-African American 111.1 (>60)
--- NOTE | 2017-12-23 07:54 | PN ---
Subjective Date of Service: 12/23/17 Interval History: Mr. Redd is non-verbal and only withdraws to verbal or noxious stimuli. Nursing staff report that he was aggressive overnight and pulled out his NG tube. He now has a one-to-one at his bedside. Family History: Unchanged from Admission Social History: Unchanged from Admission Past Medical History: Unchanged from Admission Objective Active Medications: Acetaminophen (Tylenol Supp*) 650 mg MA Q6H PRN Al Hydrox/Mg Hydrox/Simethicone (Maalox Plus*) 30 ml PO Q6H PRN Atorvastatin Calcium (Lipitor*) 20 mg PO 1700 NORA Carbidopa/Levodopa (Sinemet Cr 50/200(*)) 1 tab.cr PO BEDTIME NORA Carbidopa/Levodopa (Sinemet 25/100 Tab(*)) 2 tab PO 1630 NORA Carbidopa/Levodopa (Sinemet 25/100 Tab(*)) 3 tab PO 0800 NORA Carbidopa/Levodopa (Sinemet 25/100 Tab(*)) 2.5 tab PO 1200 NORA Docusate Sodium (Colace Cap*) 100 mg PO BID PRN Sodium Chloride (Ns 0.9% 1000 Ml*) 1,000 mls @ 150 mls/hr IV PER RATE NORA Ondansetron HCl (Zofran Inj*) 4 mg IV Q4H PRN Senna (Senokot Tab*) 1 tab PO BID PRN Vital Signs: Temp Pulse Resp BP Pulse Ox 98.5 F 71 20 111/71 100 12/23/17 04:40 12/23/17 04:40 12/23/17 04:40 12/23/17 04:40 12/23/17 04:40 Oxygen Devices in Use Now: None Appearance: Male lying in bed in NAD Eyes: No Scleral Icterus Ears/Nose/Mouth/Throat: - - Mucous membranes dry Neck: Trachea Midline Respiratory: Symmetrical Chest Expansion and Respiratory Effort, - - Coarse breath sounds appear to be upper airway congestion Cardiovascular: - - R UE edema from prior infiltrated IV Abdominal: NL Sounds; No Tenderness; No Distention Lymphatic: No Cervical Adenopathy Skin: No Rash or Ulcers Neurological: - - Withdraws to verbal and noxious stimuli only, no spontaneous movements seen Result Diagrams: 12/23/17 05:33 12/23/17 05:33 Microbiology and Other Data: . Assess/Plan/Problems-Billing Assessment: Mr. Redd is an 82yo male with a PMH for Parkinson's, HLD, HTN who presents with an acute deterioration in his mental status and physical capabilities within the past week. - Patient Problems (1) Altered mental status Comment: - Continues to decline, now unable to reliably take po. Unclear etiology. - No further fever. Temp to 100.8 12/21/17 with concern for nuchal rigidity. NG tube placed for consistent administration of sinemet as abrupt withdrawal can lead to neuroleptic malignant syndrome and explain AMS, fever, and rigidity (CK elevated yesterday). Also had LP 12/21/17. - No evidence of infection thus far. ESR/CRP normal. UA neg, cxray neg. CSF negative as well. - No electrolyte abnormalities. B12, folate and thyroid studies normal. - Patient has had an acute decrease in his mental and physical capability not consistent with the general clinical course of idiopathic parkinson's disease. Recent decrease in Simemet not likely cause of deterioration. CT and MRI brain with no abnormality. - Question if this reflects underlying multisystem atrophy. Plan for consistent administration of sinemet for 24 hours and if no other etiology discovered, will discuss goals of care with patient's family. (2) Parkinsons disease Comment: - Continue Simemet with dosing per neurology. Abrupt decline in congnitive functioning not consistent with progression of parkinson's. - Follows with Dr. Rouse outpatient. (3) Hyperlipidemia Comment: - Hold atorvastatin. (4) Hypertension Comment: - SBP 110s. - Has been hypotensive recently, HCTZ has been stopped (5) Thrombocytopenia Comment: - Plt down to 62 today. - Held asa, consider discontinuing heparin if < 50K. (6) DVT prophylaxis Comment: - Heparin SubQ. - Consider stopping if plt < 50K. (7) DNR (do not resuscitate) Comment: Status and Disposition: Admitted inpatient. Poor prognosis given rapid decline without reversible etiology thus far. Anticipate NH placement.
[2017-12-23] MEDS ORDERED: LORazepam INJ* 2 MG/ML 1 ML VIAL IV PUSH PRN (09:42)
[2017-12-23] MEDS: LORazepam INJ* 2 MG/ML 1 ML VIAL IV PUSH PRN (10:29)
[2017-12-23] MEDS ORDERED: Carbidopa/Levodop 25/100 MG TAB(*) PO SCH (12:00)
--- NOTE | 2017-12-23 12:38 | RAD ---
HISTORY: NG tube placement COMPARISONS: December 20, 2017 VIEWS: 1: frontal portable view of the chest at 12 1:00 PM. The right lung apex is cut off. FINDINGS: LINES AND TUBES: A feeding tube is noted with the tip just distal to the GE junction in a prepyloric position. CARDIOMEDIASTINAL SILHOUETTE: The cardiomediastinal silhouette is stable. PLEURA: The costophrenic angles are sharp. No pleural abnormalities are noted. LUNG PARENCHYMA: The lung volumes are low. The lungs are clear. ABDOMEN: The upper abdomen is clear. There is no subphrenic gas. BONES AND SOFT TISSUES: No bone or soft tissue abnormalities are noted. IMPRESSION: LINES AND TUBES ABOVE. NO ACTIVE CARDIOPULMONARY DISEASE.
[2017-12-23] MEDS: Carbidopa/Levodop 25/100 MG TAB(*) PO SCH ×2 (13:05→19:37)
--- NOTE | 2017-12-23 13:20 | RAD ---
HISTORY: Evaluate NG tube position COMPARISONS: December 23, 2017 at 12:01 PM VIEWS: 1: frontal portable view of the chest at 1:00 PM. The left lung apex is cut off. FINDINGS: LINES AND TUBES: A feeding tube is again noted with the tip at the GE junction, in a prepyloric position. The position is essentially unchanged from the previous examination. CARDIOMEDIASTINAL SILHOUETTE: The cardiomediastinal silhouette is normal for portable technique. PLEURA: The costophrenic angles are sharp. No pleural abnormalities are noted. LUNG PARENCHYMA: The lung volumes are low. ABDOMEN: The upper abdomen is clear. There is no subphrenic gas. BONES AND SOFT TISSUES: There is a scoliotic curvature of the spine. Degenerative changes are noted. IMPRESSION: LINES AND TUBES ABOVE. NO ACTIVE CARDIOPULMONARY DISEASE.
[2017-12-23] MEDS: Atorvastatin* 20 MG TAB PO SCH (15:10)
[2017-12-23] MEDS ORDERED: Carbidopa/Levodop 25/100 MG TAB(*) PO ONE ×2 (16:00→17:00)
[2017-12-23] MEDS: Carbidopa/Levodop CR 50/200(*) TAB.CR PO SCH (23:16)
[2017-12-24] MEDS ORDERED: Carbidopa/Levodop 25/100 MG TAB(*) NG TUBE ONE (00:27)
[2017-12-24] MEDS: LORazepam INJ* 2 MG/ML 1 ML VIAL IV PUSH PRN ×2 (01:17→07:14)
[2017-12-24] MEDS: Heparin VIAL(*) 5000 UNITS/ML VIAL (FIVE THOUSAND) SUBCUT SCH ×4 (01:19→23:26)
[2017-12-24 06:48] LABS: ABS Basophils 0 10^3/ul (0-0.2); ABS Eosinophils 0 10^3/ul (0-0.6); ABS Lymphocytes 0.8 10^3/ul (1.0-4.8); ABS Monocytes 1.1 10^3/ul (0-0.8); ABS Nucleated RBC 0 10^3/ul; Eosinophil % 0.5 % (0-6); Hematocrit 34 % (42-52); Hemoglobin 11.2 g/dl (14.0-18.0); Lymphocyte % 11.4 % (25-47); Mean Corpuscular HGB Conc 34 g/dl (31-36); Mean Corpuscular Hemoglobin 31 pg (27-31); Mean Corpuscular Volume 92 fL (80-94); Mean Platelet Volume 11.1 um3 (7.4-10.4); Nucleated Red Blood Cells % 0.1; Platelet Count 63 10^3/ul (150-450); Red Blood Count 3.66 10^6/ul (4.0-5.4); Red Cell Distribution Width 19 % (10.5-15); White Blood Count 6.9 10^3/ul (3.5-10.8)
[2017-12-24] MEDS: Carbidopa/Levodop 25/100 MG TAB(*) PO SCH ×4 (10:31→21:03)
--- NOTE | 2017-12-24 11:36 | RAD ---
Indication: Confirm NG tube placement. Comparison: December 24, 2017 0959 hours Technique: Upright AP 0905 hours hours and upright AP 1000 hours Report: The 0905 hours exam documenting the NG tube coiled at the level of the proximal esophagus. The 1000 hours exam documents the NG tube at the stomach the tip approximating the fundus body junction at the greater curvature. Low lung volumes with subsegmental atelectasis. Crowding of the central pulmonary vasculature due to low lung volumes limiting assessment. Negative for cardiomegaly. IMPRESSION: 1. The 1000 hours exam documents the NG tube at the stomach the tip approximating the fundus body junction at the greater curvature. 2. Low lung volumes with subsegmental atelectasis.
--- NOTE | 2017-12-24 12:37 | PN ---
PROGRESS NOTE: DATE OF FOLLOWUP: 12/23/17 HISTORY: The patient pulled out his NG tube overnight with some agitation and therefore, missed his morning and noon doses of Sinemet today. Apparently when his family was here yesterday afternoon and they played some music for him, he seemed to perk up, but today has been essentially unresponsive since around 2 p.m. or so and appears to be sleeping deeply according to the aide who is now at his bedside as a one-to-one, to ensure that he does not pull out the NG tube again. A close family friend came in in place of Mr. Redd' who had a surgery today and I updated her. Earlier today, I had discussed the plan with Eleonora Jeffrey and we had decided to move the timing of his Sinemet to give him his 8 a.m. dose at around 12:30, his noon dose around 4 p.m., and his 4:30 dose around 7 p.m. MEDICATIONS: Include: 1. Carbidopa/levodopa 25/100 mg 3 tablets/2.5 tablets/2 tablets. 2. Carbidopa/levodopa CR 50/200, 1 tablet at bedtime. PHYSICAL EXAMINATION: Vital Signs: Temperature 99.2, blood pressure 99/50, heart rate 72, oxygen saturation 98% on room air. On my exam today, he is sitting upright in his bed with his eyes closed and appears asleep. He has thick brownish mucus covering his lips and the corners of his mouth. The aide states that he has developed a bit of a cough and she has been wiping this mucus for him. He continues to have some swelling of his right arm and hand. He did not respond to any commands. He does not open his eyes spontaneously or to noxious stimulation or to loud voice. His gaze is midline and the pupils are reactive bilaterally. He very strongly resists passive movement of his upper extremities with equal strength bilaterally. There is not as much rigidity or tremor and no jerking as was noted yesterday. He withdraws and grimaces to noxious stimulation in lower extremities. His toes appear to be upgoing. DATA: His EEG showed moderate degree of encephalopathy with no epileptiform abnormalities. His CKs have been 424 and peaked at 902 at 1724 yesterday and this morning was 729. He underwent a lumbar puncture yesterday as well, which showed 2 white blood cells, 2 RBC's, normal glucose of 61, and an elevated protein of 72. HSV-1 and 2 PCR's are negative. VDRL is pending. There is no growth in the CSF culture to date. His MRI of the brain was repeated and showed no evidence of an infarction. He continues to have atrophy as well as small vessel disease and again to my eye, the atrophy appears more prominent in the parieto-occipital regions. IMPRESSION: Kevin Redd is an 82-year-old man with Parkinson's disease versus atypical parkinsonism, admitted to the hospital on 12/20/17 secondary to a decline in his mental status as an outpatient. We have had continued difficulty with administration of his Sinemet because when he is alert enough to swallow, he was pocketing the medications and not actually swallowing and was pulling out his NG tube. His NG tube has been replaced and he now has a sitter to try to ensure that he cannot pull it out again. Our plan is to try to reliably get his Sinemet into him for the next 24 hours or so and assess his response from there. His spinal fluid is not suggestive of a MASSAGE COORDINATOR infection and his CBC has been not suggestive of an infection either. We may be looking at more of an end-stage atypical parkinsonism at this point if he does not turn around with more reliable administration of his antiparkinsonian medications. I did briefly discuss this with the family friend who did not seem surprised and felt that the would likely be ready to have some of these discussions if necessary. We will follow up tomorrow. [id number]/[facility] #: [id number] ANGY
--- NOTE | 2017-12-24 16:24 | PN ---
Subjective Date of Service: 12/24/17 Interval History: Patient remains non-communicative and intolerant of the NG tube. Patient responds to painful stimuli but will not open his eyes. Patient only able to get his Sinemet at 10:30am due to issues with NG tube. Discussed with patient's the possibility that this will not be treatable and that if after 24 hours of consistent Sinemet dosing that it might be prudent to discuss Hospice which the was in agreement with. Family History: Unchanged from Admission Social History: Unchanged from Admission Past Medical History: Unchanged from Admission Objective Active Medications: Acetaminophen (Tylenol Supp*) [address] Q6H PRN PRN Reason: FEVER/PAIN Last Admin: 12/22/17 00:34 Dose: 650 mg Al Hydrox/Mg Hydrox/Simethicone (Maalox Plus*) 30 ml PO Q6H PRN PRN Reason: INDIGESTION Carbidopa/Levodopa (Sinemet Cr 50/200(*)) 1 tab.cr PO BEDTIME [facility] Last Admin: 12/23/17 23:16 Dose: Not Given Carbidopa/Levodopa (Sinemet 25/100 Tab(*)) 3 tab PO 0800 [facility] Last Admin: 12/24/17 10:31 Dose: 3 tab Carbidopa/Levodopa (Sinemet 25/100 Tab(*)) 2.5 tab PO 1200 [facility] Last Admin: 12/24/17 13:20 Dose: 2.5 tab Carbidopa/Levodopa (Sinemet 25/100 Tab(*)) 2 tab PO 1630 [facility] Carbidopa/Levodopa (Sinemet 25/100 Tab(*)) 2 tab PO 1900 [facility] Last Admin: 12/23/17 19:37 Dose: 2 tab Docusate Sodium (Colace Cap*) 100 mg PO BID PRN PRN Reason: CONSTIPATION Heparin Sodium (Porcine) (Heparin Vial(*)) 5,000 units SUBCUT Q8HR [facility] Last Admin: 12/24/17 13:24 Dose: 5,000 units Lorazepam (Ativan Inj*) 1 mg IV PUSH Q6H PRN PRN Reason: AGITATION Last Admin: 12/24/17 07:14 Dose: 1 mg Ondansetron HCl (Zofran Inj*) 4 mg IV Q4H PRN PRN Reason: NAUSEA/VOMITING Senna (Senokot Tab*) 1 tab PO BID PRN PRN Reason: CONSTIPATION Vital Signs - 8 hr 12/24/17 12/24/17 12/24/17 09:26 15:19 16:13 Temperature 97.2 F 97.5 F Pulse Rate 63 180 106 Respiratory 16 24 Rate Blood Pressure 114/50 115/50 (mmHg) O2 Sat by Pulse 97 100 Oximetry Oxygen Devices in Use Now: High Flow Nasal Cannula Appearance: Patient is an 82yo male who appears stated age and is sitting in the bed in [facility]. Eyes: No Scleral Icterus, PERRLA Ears/Nose/Mouth/Throat: NL Teeth, Lips, Gums, Clear Oropharnyx, Mucous Membranes Moist Neck: NL Appearance and Movements; NL JVP, Trachea Midline Respiratory: Symmetrical Chest Expansion and Respiratory Effort, - - Crackles in B/L Lower lobes. Cardiovascular: NL Sounds; No Murmurs; No JVD, RRR, No Edema Abdominal: NL Sounds; No Tenderness; No Distention, No Hepatosplenomegaly Lymphatic: No Cervical Adenopathy Skin: No Rash or Ulcers, No Nodules or Sclerosis Neurological: - - Responsive only to noxious stimuli. Lines/Tubes/Other Access: Clean, Dry and Intact Naso-enteral Tube Result Diagrams: 12/24/17 05:47 12/24/17 05:47 Microbiology and Other Data: . Assess/Plan/Problems-Billing Assessment: Mr. Redd is an 82yo male with a PMH for Parkinson's, HLD, HTN who presents with an acute deterioration in his mental status and physical capabilities within the past week without improvement. - Patient Problems (1) Altered mental status Current Visit: Yes Status: Acute Code(s): R41.82 - ALTERED MENTAL STATUS, UNSPECIFIED SNOMED Code(s): 778098234 Comment: Continues to decline, now unable to reliably take po. Unclear etiology. No further fever. Temp to 100.8 12/21/17 with concern for nuchal rigidity. NG tube placed for consistent administration of sinemet as abrupt withdrawal can lead to neuroleptic malignant syndrome and explain AMS, fever, and rigidity (CK elevated yesterday). Also had LP 12/21/17. While this may be contributing, likely not purely the cause of AMS. No evidence of infection thus far. ESR/CRP normal. UA neg, cxray neg. CSF negative as well. - No electrolyte abnormalities. B12, folate and thyroid studies normal. - Patient has had an acute decrease in his mental and physical capability not consistent with the general clinical course of idiopathic parkinson's disease. Recent decrease in Simemet not likely cause of deterioration. CT and MRI brain with no abnormality. Question if this reflects underlying Parkinson's Plus disorder. Patient has not had 24 hours of consistent sinemet as per previous plan, this will hve occurred tomorrow morning. Palliative care discussed with and she is amenable to this plan. (2) Parkinsons disease Current Visit: Yes Status: Acute Code(s): G20 - PARKINSON'S DISEASE SNOMED Code(s): 15667177 Comment: Continue Simemet with dosing per neurology. Abrupt decline in congnitive functioning not consistent with progression of parkinson's. Follows with Dr. Rouse outpatient. (3) Hyperlipidemia Current Visit: Yes Status: Acute Code(s): E78.5 - HYPERLIPIDEMIA, UNSPECIFIED SNOMED Code(s): 34218168 Comment: Hold atorvastatin. (4) Hypertension Current Visit: Yes Status: Acute Code(s): I10 - ESSENTIAL (PRIMARY) HYPERTENSION SNOMED Code(s): 28288386 Comment: SBP 110s. Has been hypotensive recently, HCTZ has been stopped (5) Thrombocytopenia Current Visit: Yes Status: Acute Code(s): D69.6 - THROMBOCYTOPENIA, UNSPECIFIED SNOMED Code(s): 467866980 Comment: Plt down to 63 today. Held asa, consider discontinuing heparin if < 50K. (6) DVT prophylaxis Current Visit: Yes Status: Acute Code(s): YGL2972 - SNOMED Code(s): 628818227 Comment: Heparin SubQ. Consider stopping if plt < 50K. (7) DNR (do not resuscitate) Current Visit: Yes Status: Acute Comment: Consideration for hospice Status and Disposition: Admitted inpatient. Poor prognosis given rapid decline without reversible etiology thus far. Consideration for Hospice.
[2017-12-24 17:06] LABS: CSF VDRL Negative (Negative)
[2017-12-24] MEDS: Carbidopa/Levodop CR 50/200(*) TAB.CR PO SCH (21:12)
[2017-12-25] MEDS: LORazepam INJ* 2 MG/ML 1 ML VIAL IV PUSH PRN ×2 (02:53→08:33)
[2017-12-25 06:00] LABS: ABS Basophils 0 10^3/ul (0-0.2); ABS Eosinophils 0 10^3/ul (0-0.6); ABS Lymphocytes 0.6 10^3/ul (1.0-4.8); ABS Neutrophils 6.7 10^3/ul (1.5-7.7); ABS Nucleated RBC 0 10^3/ul; Eosinophil % 0.3 % (0-6); Hematocrit 34 % (42-52); Hemoglobin 11.3 g/dl (14.0-18.0); Lymphocyte % 6.6 % (25-47); Mean Corpuscular HGB Conc 34 g/dl (31-36); Mean Corpuscular Hemoglobin 31 pg (27-31); Mean Corpuscular Volume 91 fL (80-94); Mean Platelet Volume 10.8 um3 (7.4-10.4); Nucleated Red Blood Cells % 0; Platelet Count 63 10^3/ul (150-450); Red Blood Count 3.69 10^6/ul (4.0-5.4); Red Cell Distribution Width 18 % (10.5-15); White Blood Count 8.3 10^3/ul (3.5-10.8)
[2017-12-25 06:10] LABS: EGFR Non-African American 136.2 (>60)
[2017-12-25] MEDS: Heparin VIAL(*) 5000 UNITS/ML VIAL (FIVE THOUSAND) SUBCUT SCH ×3 (06:16→22:29)
[2017-12-25] MEDS ORDERED: Potassium Chloride LIQUID* 20 MEQ PACKET PO ONE (06:57)
--- NOTE | 2017-12-25 08:05 | RAD ---
INDICATION: Evaluate nasogastric tube placement COMPARISON: December 24, 2017 TECHNIQUE: An AP portable view obtained at 0730 hours is submitted. FINDINGS: Bones/Soft Tissues: There are no acute bony findings. There is a feeding tube in the distal esophagus Cardiomediastinal: The heart is normal in size. The central pulmonary vessels are prominent. Lungs: Examination is expiratory with vascular crowding. Mild vascular congestion cannot be excluded.. Pleura: There are no pleural effusions. Other: None IMPRESSION: THE FEEDING TUBE IS IN THE DISTAL ESOPHAGUS. EXPIRATORY FILM WITH VASCULAR CROWDING AND POSSIBLE VASCULAR CONGESTION.
[2017-12-25] MEDS ORDERED: LORazepam INJ* 2 MG/ML 1 ML VIAL IV PUSH ONE (09:07)
--- NOTE | 2017-12-25 10:35 | RAD ---
HISTORY: NG tube placement COMPARISONS: December 25, 2017 at 7:23 AM VIEWS: 1: frontal portable view of the chest at 10:02 AM FINDINGS: LINES AND TUBES: A feeding tube is noted with the tip in the left upper quadrant in a prepyloric position. CARDIOMEDIASTINAL SILHOUETTE: The cardiomediastinal silhouette is normal for portable technique. PLEURA: The costophrenic angles are sharp. No pleural abnormalities are noted. LUNG PARENCHYMA: The lung volumes are low. The lungs are clear accounting for the phase of respiration. ABDOMEN: The upper abdomen is clear. There is no subphrenic gas. BONES AND SOFT TISSUES: No bone or soft tissue abnormalities are noted. IMPRESSION: LINES AND TUBES ABOVE. LOW LUNG VOLUMES.
[2017-12-25] MEDS: Carbidopa/Levodop 25/100 MG TAB(*) PO SCH ×4 (10:51→22:16)
--- NOTE | 2017-12-25 14:03 | PN ---
Subjective Date of Service: 12/25/17 Interval History: Patient somewhat more alert this AM and able to respond to questioning and deny pain but still having violent outbursts with the staff and resistant to treatment. Patient again pulled out his NG tube and received his sinemet late. Unable to participate in swallowing evaluation. Family History: Unchanged from Admission Social History: Unchanged from Admission Past Medical History: Unchanged from Admission Objective Active Medications: Acetaminophen (Tylenol Supp*) 650 mg [place] Q6H PRN PRN Reason: FEVER/PAIN Last Admin: 12/22/17 00:34 Dose: 650 mg Al Hydrox/Mg Hydrox/Simethicone (Maalox Plus*) 30 ml PO Q6H PRN PRN Reason: INDIGESTION Carbidopa/Levodopa (Sinemet Cr 50/200(*)) 1 tab.cr PO BEDTIME [facility] Last Admin: 12/24/17 21:12 Dose: Not Given Carbidopa/Levodopa (Sinemet 25/100 Tab(*)) 3 tab PO 0800 [facility] Last Admin: 12/25/17 10:51 Dose: 3 tab Carbidopa/Levodopa (Sinemet 25/100 Tab(*)) 2.5 tab PO 1200 [facility] Last Admin: 12/24/17 13:20 Dose: 2.5 tab Carbidopa/Levodopa (Sinemet 25/100 Tab(*)) 2 tab PO 1630 [facility] Last Admin: 12/24/17 16:57 Dose: 2 tab Carbidopa/Levodopa (Sinemet 25/100 Tab(*)) 2 tab PO 1900 [facility] Last Admin: 12/24/17 21:03 Dose: 2 tab Docusate Sodium (Colace Cap*) 100 mg PO BID PRN PRN Reason: CONSTIPATION Heparin Sodium (Porcine) (Heparin Vial(*)) 5,000 units SUBCUT Q8HR [facility] Last Admin: 12/25/17 06:16 Dose: 5,000 units Lactated Ringer's (Lactated Ringers 1000 Ml Bag*) 1,000 mls @ 75 mls/hr IV PER RATE [facility] Last Admin: 12/25/17 10:59 Dose: 75 mls/hr Lorazepam (Ativan Inj*) 1 mg IV PUSH Q6H PRN PRN Reason: AGITATION Last Admin: 12/25/17 08:33 Dose: 1 mg Ondansetron HCl (Zofran Inj*) 4 mg IV Q4H PRN PRN Reason: NAUSEA/VOMITING Senna (Senokot Tab*) 1 tab PO BID PRN PRN Reason: CONSTIPATION Vital Signs - 8 hr 12/25/17 12/25/17 12/25/17 06:55 07:59 08:00 Temperature Pulse Rate Respiratory 24 18 18 Rate Blood Pressure (mmHg) O2 Sat by Pulse Oximetry 12/25/17 12/25/17 08:33 09:45 Temperature 97.5 F Pulse Rate 86 Respiratory 22 14 Rate Blood Pressure 147/63 (mmHg) O2 Sat by Pulse 96 Oximetry Oxygen Devices in Use Now: None Appearance: Patient is an 82yo male who appears stated age and is sitting in the bed lethargic and resistant to all attempts to rouse him. Eyes: No Scleral Icterus, PERRLA Ears/Nose/Mouth/Throat: NL Teeth, Lips, Gums, - - Dry mucus membranes. Dried secretions in posterior pharynx. Neck: NL Appearance and Movements; NL JVP, Trachea Midline Respiratory: Symmetrical Chest Expansion and Respiratory Effort, - - Crackles in B/L lower and middle lobes. Cardiovascular: NL Sounds; No Murmurs; No JVD, RRR, No Edema Abdominal: NL Sounds; No Tenderness; No Distention, No Hepatosplenomegaly Lymphatic: No Cervical Adenopathy Extremities: No Edema, No Clubbing, Cyanosis Skin: No Rash or Ulcers, No Nodules or Sclerosis Neurological: - - Uncooperative with neurological exam. Result Diagrams: 12/25/17 05:14 12/25/17 05:14 Microbiology and Other Data: . Assess/Plan/Problems-Billing Assessment: Mr. Redd is an 82yo male with a PMH for Parkinson's, HLD, HTN who presents with an acute deterioration in his mental status and physical capabilities within the past week with mild improvement overnight but continued severe deterioration in functional status. - Patient Problems (1) Altered mental status Current Visit: Yes Status: Acute Code(s): R41.82 - ALTERED MENTAL STATUS, UNSPECIFIED SNOMED Code(s): 610672953 Comment: Continues to decline. Unclear etiology. No further fever. Temp to 100.8 12/21/17 with concern for nuchal rigidity. NG tube placed for consistent administration of sinemet as abrupt withdrawal can lead to neuroleptic malignant syndrome and explain AMS, fever, and rigidity (CK elevated but decreased and almost to normal range). Also had LP 12/21/17. While this may be contributing, likely not purely the cause of AMS. No evidence of infection thus far. ESR/CRP normal. UA neg, cxray neg. CSF negative as well. No electrolyte abnormalities. B12, folate and thyroid studies normal. Patient has had an acute decrease in his mental and physical capability not consistent with the general clinical course of idiopathic parkinson's disease. Recent decrease in Simemet not likely cause of deterioration. CT and MRI brain with no abnormality. Question if this reflects underlying Parkinson's Plus disorder. Patient has not had 24 hours of consistent sinemet as per previous plan, this will hve occurred tomorrow morning. Palliative care discussed with and she is amenable to this plan. (2) Parkinsons disease Current Visit: Yes Status: Acute Code(s): G20 - PARKINSON'S DISEASE SNOMED Code(s): 10558370 Comment: Continue Simemet with dosing per neurology. Abrupt decline in congnitive functioning not consistent with progression of parkinson's. Follows with Dr. Rouse outpatient. (3) Hyperlipidemia Current Visit: Yes Status: Acute Code(s): E78.5 - HYPERLIPIDEMIA, UNSPECIFIED SNOMED Code(s): 81329067 Comment: Hold atorvastatin. (4) Hypertension Current Visit: Yes Status: Acute Code(s): I10 - ESSENTIAL (PRIMARY) HYPERTENSION SNOMED Code(s): 44375714 Comment: SBP 110s. Has been hypotensive recently, HCTZ has been stopped (5) Thrombocytopenia Current Visit: Yes Status: Acute Code(s): D69.6 - THROMBOCYTOPENIA, UNSPECIFIED SNOMED Code(s): 115496634 Comment: Platelets stable at 63 today. Held asa, consider discontinuing heparin if < 50K. (6) DVT prophylaxis Current Visit: Yes Status: Acute Code(s): QVK9418 - SNOMED Code(s): 989368326 Comment: Heparin SubQ. Consider stopping if plt < 50K. (7) DNR (do not resuscitate) Current Visit: Yes Status: Acute Comment: Consideration for hospice Status and Disposition: Admitted inpatient. Poor prognosis given rapid decline without reversible etiology thus far. Consideration for Hospice.
[2017-12-25] MEDS ORDERED: Atropine 1% (ORAL/SL)* 15 ML BTL SL PRN (14:39)
--- NOTE | 2017-12-25 15:49 | PN ---
PROGRESS NOTE: DATE OF FOLLOWUP: 12/24/17. HISTORY: The patient this morning again pulled out his NG tube, which was replaced and he was about 2-1/2 hours late on his 8 am Sinemet. I saw the patient at 2 different points during the day today, once without his family present and once with them present. On my earlier evaluation, he was completely nonresponsive, but with his family present with some classical music playing, he did have some eye opening and apparently said "help" to his . We discussed his workup thus far as well as his overall situation in terms of goals of care. MEDICATIONS: Include: 1. Carbidopa/levodopa 25/100 mg 3 tablets at 8 a.m., 2.5 tablets at noon, and 2 tablets at 4:30. 2. Sinemet CR 50/200 mg, which was not given last evening because it cannot be crushed. 3. Tylenol. 4. Heparin. 5. Ativan 1 mg, last given at 7 a.m. this morning. PHYSICAL EXAMINATION: Vital Signs: Temperature 97.5, blood pressure 115/50, heart rate in the computer is listed as 180, but I doubt this is correct, oxygen saturation 100% on room air. On general exam, he was sitting semi-upright in his hospital bed with his eyes closed, appearing asleep. He had deep breathing, which was somewhat wet sounding. His heart was in a regular rate and rhythm. He did not open his eyes to voice or noxious stimulation, but briskly grimaced to noxious stimulation. He did not follow any commands. His mouth hangs open. On motor examination, his tone is relatively normal in the upper extremities. Tone remained somewhat increased in his lower extremities. He again briskly withdraws to noxious stimulation in all 4 extremities. This toes are upgoing bilaterally. DATA: His CBC is stable today and his platelets continue to be low at 63. His chemistry panel was notable for low glucose, this morning at 66. His CSF VDRL came back negative. IMPRESSION: Kevin Redd is an 82-year-old man with Parkinson's disease versus atypical parkinsonism, who was admitted on 12/20/17 with a decline in his mental status as an outpatient. In discussion with his today, she states that at home, he had no longer been able to do crossword puzzles, and she did not think he was actually able to read any more, though he pretended to do so. There has been some question of whether he had an NMS like syndrome secondary to minor reduction in his Sinemet dose as well as some missed doses when he was admitted to the hospital. Reliable administration of this med has remained a challenge secondary to repeated removal of the NG tube; however, he has received essentially all of his doses in the last 24 hours, save for the controlled release medication, which was added just one week ago. Despite this his overall condition has really not changed. I discussed with his that we have not been able to identify a reversible or treatable cause for his current presentation. She is open to palliative care consultation as she reiterates that his quality of life has really been very poor of late. As such , we will enter the palliative care consult and I will be available as needed to assist further in the care of the patient while he is here. [id number]/[facility] #: [id number] ANGY
[2017-12-25] MEDS ORDERED: Carbidopa/Levodop 25/100 MG TAB(*) PO SCH (16:30)
[2017-12-25] MEDS: Carbidopa/Levodop CR 50/200(*) TAB.CR PO SCH (22:04)
[2017-12-26] MEDS: LORazepam INJ* 2 MG/ML 1 ML VIAL IV PUSH PRN (04:01)
[2017-12-26] MEDS: Heparin VIAL(*) 5000 UNITS/ML VIAL (FIVE THOUSAND) SUBCUT SCH ×2 (05:58→14:01)
--- NOTE | 2017-12-26 09:24 | PN ---
PROGRESS NOTE: DATE OF FOLLOWUP: 12/25/17 OVERNIGHT EVENTS: I am told that Mr. Redd was more responsive to nursing this morning, answering about three yes/no questions. In reviewing his MAR from yesterday, he actually got Sinemet 25/100 mg 4 times for a total dose of 950 mg, which is 200 mg more of levodopa then he was previously prescribed. Nurse is concerned that he sounds as though he is having some gurgling and coughing, and he has crackles at the bases of his lungs. His and a family friend were in the room at the time of my evaluation. MEDICATIONS: Carbidopa levodopa 25/100 mg 3 tablets at 8 a.m., 2-1/2 tablets at noon, 2 tablets at 4:30 p.m., and 2 tablets at 9 p.m. PHYSICAL EXAMINATION: Vital Signs: Temperature 97.5, blood pressure 147/63, heart rate 86, oxygen saturation 95% to 96% on room air. On general examination, he is lying somewhat upright in his hospital bed with his mouth hanging open, his eyes closed. He does not open his eyes to voice or to tactile stimulation. When his feet are touched, he does grimace slightly. He does not answer any questions for me. His NG tube is in place, and there is some dried blood at his right nare from repeated replacements. His gaze is midline, and he actively resists eye opening. He has very dry mucous membranes. His tone is increased in his upper and lower extremities, and he actively resists movement of his limbs. There is no significant tremor. DATA: His CBC is unchanged today, and continues to show a hematocrit of 34, platelets of 63, with no white count. His BNP shows an improving CK of 247, BUN of 34, creatinine of 0.57 with a BUN to creatinine ratio of 59.6. His CSF culture continues to show no growth. His chest x-ray this morning showed no evidence for pulmonary edema. IMPRESSION: Kevin Redd is an 82-year-old man with idiopathic Parkinson's versus atypical parkinsonism admitted with progressive decline in mental status. He seems to have done a bit better with the addition of a fourth dose of two tablets of carbidopa levodopa 25/100 mg. Unfortunately, he continues to require the NG tube for administration of this medication. We will continue with this dosing regimen today. He is going to be seen by palliative care as well, and their input is appreciated. [id number]/[facility] #: [id number] ANGY
[2017-12-26] MEDS: Carbidopa/Levodop 25/100 MG TAB(*) PO SCH ×4 (10:42→19:15)
--- NOTE | 2017-12-26 11:50 | CONSULT ---
Palliative / Hospice Consult Ordering Provider: Gerson Hendrix - Subjective Code Status: DNR Advance Directives Location: In Chart MOLST Part A Completed: Yes - DNR Date: 12/21/17 MOLST Part E Completed:: Yes - DNI only Date: 12/21/17 - History or Present Illness History or Present Illness: This 82 year old man was first diagnosed with Parkinson's disease 2 years ago, although his believes he had the disease for much longer. He initially did well but over the past months has experienced rather precipitous decline, with a 40 lb. weight loss (20% of body mass) over 6 months, likely secondary to psychomotor retardation rather than any perceived dysphagia. He came to the ER on 12/21 after experiencing a fall on 12/17 associated with progressive weakness and lethargy, and an acute confusional state. In the hospital he became partially unresponsive and was taking nothing by mouth. His Sinemet was held for two doses as the dose was uncertain, and his CPK elevated to >900, heralding imminent neurloeptic malignant syndrome. An NG tube was placed to administer the Sinemet, but the patient pulled the tube and has required mittens to prevent further attempts. The patient has now had 24 hours of Sinemet. His mental status is very mildly improved. His CPK is normalizing. Lab Values: Laboratory Last Values WBC 8.3 10^3/ul (3.5-10.8) 12/25/17 05:14 RBC 3.69 10^6/ul (4.0-5.4) L 12/25/17 05:14 Hgb 11.3 g/dl (14.0-18.0) L 12/25/17 05:14 Hct 34 % (42-52) L 12/25/17 05:14 MCV 91 fL (80-94) 12/25/17 05:14 MCH 31 pg (27-31) 12/25/17 05:14 MCHC 34 g/dl (31-36) 12/25/17 05:14 RDW 18 % (10.5-15) H 12/25/17 05:14 Plt Count 63 10^3/ul (150-450) L 12/25/17 05:14 MPV 10.8 um3 (7.4-10.4) H 12/25/17 05:14 Neut % (Auto) 80.8 % (38-83) 12/25/17 05:14 Lymph % (Auto) 6.6 % (25-47) L 12/25/17 05:14 Davison % (Auto) 12.1 % (0-7) H 12/25/17 05:14 Eos % (Auto) 0.3 % (0-6) 12/25/17 05:14 Baso % (Auto) 0.2 % (0-2) 12/25/17 05:14 Absolute Neuts (auto) 6.7 10^3/ul (1.5-7.7) 12/25/17 05:14 Absolute Lymphs (auto) 0.6 10^3/ul (1.0-4.8) L 12/25/17 05:14 Absolute Monos (auto) 1.0 10^3/ul (0-0.8) H 12/25/17 05:14 Absolute Eos (auto) 0 10^3/ul (0-0.6) 12/25/17 05:14 Absolute Basos (auto) 0 10^3/ul (0-0.2) 12/25/17 05:14 Absolute Nucleated RBC 0 10^3/ul 12/25/17 05:14 Nucleated RBC % 0 12/25/17 05:14 Large Platelets Present 12/20/17 21:58 ESR 29 mm/Hr (0-40) 12/21/17 14:18 Hem Pathologist Commnt 12/20/17 21:58 INR (Anticoag Therapy) 0.89 (0.77-1.02) 12/20/17 21:58 Sodium 145 mmol/L (139-145) 12/25/17 05:14 Potassium 3.4 mmol/L (3.5-5.0) L 12/25/17 05:14 Chloride 109 mmol/L (101-111) 12/25/17 05:14 Carbon Dioxide 23 mmol/L (22-32) 12/25/17 05:14 Anion Gap 13 mmol/L (2-11) H 12/25/17 05:14 BUN 34 mg/dL (6-24) H 12/25/17 05:14 Creatinine 0.57 mg/dL (0.67-1.17) L 12/25/17 05:14 Est GFR ( Amer) 175.1 (>60) 12/25/17 05:14 Est GFR (Non-Af Amer) 136.2 (>60) 12/25/17 05:14 BUN/Creatinine Ratio 59.6 (8-20) H 12/25/17 05:14 Glucose 71 mg/dL (70-100) 12/25/17 05:14 Hemoglobin A1c 6.0 % (4.0-5.6) H 12/21/17 21:58 Lactic Acid 1.8 mmol/L (0.5-2.0) 12/20/17 21:58 Calcium 9.1 mg/dL (8.6-10.3) 12/25/17 05:14 Total Bilirubin 0.50 mg/dL (0.2-1.0) 12/20/17 21:58 AST 99 U/L (13-39) H 12/20/17 21:58 ALT 37 U/L (7-52) 12/20/17 21:58 Alkaline Phosphatase 108 U/L (34-104) H 12/20/17 21:58 Ammonia 29 mol/L (16-53) 12/20/17 21:58 Total Creatine Kinase 247 U/L (10-223) H 12/25/17 05:14 Troponin I 0.00 ng/mL (<0.04) 12/20/17 21:58 C-Reactive Protein 5.63 mg/L (< 5.00) H 12/21/17 14:18 Total Protein 6.6 g/dL (6.4-8.9) 12/20/17 21:58 Albumin 3.9 g/dL (3.2-5.2) 12/20/17 21:58 Globulin 2.7 g/dL (2-4) 12/20/17 21:58 Albumin/Globulin Ratio 1.4 (1-3) 12/20/17 21:58 Triglycerides 95 mg/dL 12/22/17 05:24 Cholesterol 126 mg/dL 12/22/17 05:24 LDL Cholesterol 44 mg/dL 12/22/17 05:24 HDL Cholesterol 62.8 mg/dL 12/22/17 05:24 Vitamin B12 815 pg/mL (180-914) 12/21/17 14:18 Methylmalonic Acid 0.13 nmol/mL (<=0.40) 12/21/17 14:18 Folate 8.75 ng/mL (>3.99) 12/21/17 14:18 TSH 6.76 mcIU/mL (0.34-5.60) H 12/21/17 14:18 Free T4 0.96 ng/dL (0.61-1.12) 12/21/17 14:18 Urine Color Yellow 12/20/17 22:30 Urine Appearance Clear 12/20/17 22:30 Urine pH 5.0 (5-9) 12/20/17 22:30 Ur Specific [place] 1.017 (1.010-1.030) 12/20/17 22:30 Urine Protein Negative (Negative) 12/20/17 22:30 Urine Ketones Trace (Negative) A 12/20/17 22:30 Urine Blood Negative (Negative) 12/20/17 22:30 Urine Nitrate Negative (Negative) 12/20/17 22:30 Urine Bilirubin Negative (Negative) 12/20/17 22:30 Urine Urobilinogen Positive (Negative) A 12/20/17 22:30 Ur Leukocyte Esterase Negative (Negative) 12/20/17 22:30 Urine WBC (Auto) Trace(0-5/hpf) (Absent) 12/20/17 22:30 Urine RBC (Auto) Trace(0-2/hpf) (Absent) 12/20/17 22:30 Ur Squamous Epith Cells Present (Absent) A 12/20/17 22:30 Urine Bacteria Absent (Absent) 12/20/17 22:30 Hyaline Casts Present (Absent) A 12/20/17 22:30 Urine Glucose Negative (Negative) 12/20/17 22:30 Urine Ascorbic Acid * (Negative) A 12/20/17 22:30 Fluid Source Cerebral spinal 12/22/17 15:40 Fluid Volume 2.0 mL 12/22/17 15:40 Fluid Color Colorless 12/22/17 15:40 Fluid Appearance Clear 12/22/17 15:40 Fluid WBC 2 /mcL 12/22/17 15:40 Fluid RBC 2 /mcL 12/22/17 15:40 Fluid Tot Cell Count 3 12/22/17 15:40 Fluid Neutrophils Not Reportable 12/22/17 15:40 Fluid Lymphocytes 100 % 12/22/17 15:40 Fluid Cell Count Rvw By 12/22/17 15:40 CSF Cell Count Tube # 4 12/22/17 15:40 CSF Glucose 61 mg/dL (40-70) 12/22/17 15:40 CSF Total Protein 72 mg/dL (15-45) H 12/22/17 15:40 CSF VDRL Negative (Negative) 12/22/17 15:40 CSF HSV I (PCR) Negative (Negative) 12/22/17 15:40 CSF Herpes II DNA (PCR) Negative (Negative) 12/22/17 15:40 Urine Opiates Screen None detected (None Detect) 12/20/17 22:30 Acetaminophen < 15 mcg/mL 12/20/17 21:58 Ur Barbiturates Screen None detected (None Detect) 12/20/17 22:30 Ur Phencyclidine Scrn None detected (None Detect) 12/20/17 22:30 Ur Amphetamines Screen None detected (None Detect) 12/20/17 22:30 U Benzodiazepines Scrn None detected (None Detect) 12/20/17 22:30 Urine Cocaine Screen None detected (None Detect) 12/20/17 22:30 U Cannabinoids Screen None detected (None Detect) 12/20/17 22:30 - Objective Active Medications: Acetaminophen (Tylenol Supp*) 650 mg MA Q6H PRN PRN Reason: FEVER/PAIN Last Admin: 12/22/17 00:34 Dose: 650 mg Al Hydrox/Mg Hydrox/Simethicone (Maalox Plus*) 30 ml PO Q6H PRN PRN Reason: INDIGESTION Atropine Sulfate (Atropine 1% (Oral/Sl)*) 2 drop SL Q2H PRN PRN Reason: DISCOMFORT Carbidopa/Levodopa (Sinemet Cr 50/200(*)) 1 tab.cr PO BEDTIME [facility] Last Admin: 12/25/17 22:04 Dose: Not Given Carbidopa/Levodopa (Sinemet 25/100 Tab(*)) 3 tab PO 0800 [facility] Last Admin: 12/26/17 10:42 Dose: 3 tab Carbidopa/Levodopa (Sinemet 25/100 Tab(*)) 2.5 tab PO 1200 [facility] Last Admin: 12/25/17 13:52 Dose: 2.5 tab Carbidopa/Levodopa (Sinemet 25/100 Tab(*)) 2 tab PO 1630 [facility] Last Admin: 12/25/17 17:49 Dose: 2 tab Carbidopa/Levodopa (Sinemet 25/100 Tab(*)) 2 tab PO 1900 [facility] Last Admin: 12/25/17 22:16 Dose: 2 tab Docusate Sodium (Colace Cap*) 100 mg PO BID PRN PRN Reason: CONSTIPATION Heparin Sodium (Porcine) (Heparin Vial(*)) 5,000 units SUBCUT Q8HR [facility] Last Admin: 12/26/17 05:58 Dose: 5,000 units Lactated Ringer's (Lactated Ringers 1000 Ml Bag*) 1,000 mls @ 75 mls/hr IV PER RATE [facility] Last Admin: 12/26/17 00:23 Dose: 75 mls/hr Lorazepam (Ativan Inj*) 1 mg IV PUSH Q6H PRN PRN Reason: AGITATION Last Admin: 12/26/17 04:01 Dose: 1 mg Ondansetron HCl (Zofran Inj*) 4 mg IV Q4H PRN PRN Reason: NAUSEA/VOMITING Senna (Senokot Tab*) 1 tab PO BID PRN PRN Reason: CONSTIPATION Vital Signs: Vital Signs: Temp Pulse Resp BP Pulse Ox 97.1 F 66 18 116/65 98 12/26/17 07:48 12/26/17 07:48 12/26/17 07:48 12/26/17 07:48 12/26/17 07:48 Patient Weight: Weight 165 lb Intake and Output: Intake & Output 12/24/17 12/25/17 12/26/17 12/27/17 06:59 06:59 06:59 06:59 Intake Total 2236 360 1467 Output Total 605 875 925 Balance 1631 -515 542 Intake: IV Fluids 2236 1467 Normal Saline 2236 1467 Oral 0 0 0 NG Tube Irrigate Amount 360 Output: Urine 380 475 Malik 225 400 925 ADLs: Meal Record Start: 12/21/17 01: 13 Freq: DAILY@0900,1400,1800 Status: Active Protocol: Document 12/21/17 09:00 [id number] (Rec: 12/21/17 09:00 [id number] TELE-C11) Document 12/21/17 14:00 [id number] (Rec: 12/21/17 14:00 [id number] TELE-C11) Document 12/21/17 18:00 [id number] (Rec: 12/21/17 21:53 OUN3062 TELE-C01) Document 12/22/17 09:00 [id number] (Rec: 12/22/17 13:13 RDS6144 TELE-C10) Document 12/22/17 14:00 [id number] (Rec: 12/22/17 14:55 [id number] TELE-C10) Document 12/23/17 09:00 [id number] (Rec: 12/23/17 10:40 LEI6993 TELE-C07) Document 12/23/17 14:00 [id number] (Rec: 12/23/17 17:41 ZFT7469 TELE-M12) Document 12/23/17 17:51 [id number] (Rec: 12/23/17 17:52 GLD0376 TELE-M12) Document 12/24/17 09:00 GDQ1699 (Rec: 12/24/17 12:16 KBS5236 TELE-C09) Document 12/24/17 14:00 [id number] (Rec: 12/24/17 14:36 AXA2056 TELE-C09) Document 12/24/17 18:00 [id number] (Rec: 12/24/17 18:28 HQD0944 TELE-C09) Document 12/25/17 09:23 UZI2465 (Rec: 12/25/17 09:24 MFL7074 TELE-M12) Document 12/25/17 12:16 [id number] (Rec: 12/25/17 12:17 LYM2021 TELE-M12) Document 12/25/17 18:00 WBE1716 (Rec: 12/25/17 19:56 VLY3219 TELE-C13) Document 12/26/17 09:00 [id number] (Rec: 12/26/17 11:25 [id number] TELE-C03) Intake and Output Start: 12/21/17 01: 13 Freq: DAILY@0600,1400,2200 Status: Active Protocol: Document 12/21/17 14:00 [id number] (Rec: 12/21/17 14:38 [id number] TELE-C11) Document 12/21/17 21:53 [id number] (Rec: 12/21/17 21:54 QJM4475 TELE-C01) Document 12/22/17 06:00 [id number] (Rec: 12/22/17 06:08 [id number] TELE-C11) Document 12/22/17 14:00 OLF2354 (Rec: 12/22/17 14:55 TGK1427 TELE-C10) Document 12/22/17 22:00 [id number] (Rec: 12/22/17 22:24 AYW5836 TELE-C06) Document 12/23/17 05:36 OCO3756 (Rec: 12/23/17 05:45 FPJ2158 TELE-C35) Document 12/23/17 13:35 TJF1850 (Rec: 12/23/17 17:46 [id number] TELE-M12) Document 12/23/17 14:00 GXG6211 (Rec: 12/23/17 17:50 JPM2199 TELE-M12) Document 12/23/17 21:15 GNB2286 (Rec: 12/23/17 21:16 JDV1347 TELE-M12) Document 12/23/17 21:50 [id number] (Rec: 12/23/17 21:52 PJX7115 TELE-M12) Document 12/24/17 10:30 [id number] (Rec: 12/24/17 14:37 BKN9584 TELE-C09) Document 12/24/17 13:30 AOS4568 (Rec: 12/24/17 14:39 HCD3345 TELE-C09) Document 12/24/17 22:00 [id number] (Rec: 12/24/17 22:07 ZLA5047 TELE-M12) Document 12/25/17 06:00 OJO6161 (Rec: 12/25/17 06:16 TIF5533 TELE-C32) Document 12/25/17 12:17 [id number] (Rec: 12/25/17 12:17 BLL3042 TELE-M12) Document 12/25/17 22:00 HWU1029 (Rec: 12/25/17 23:15 IZN9499 HOSP-C11) Document 12/26/17 06:00 QXB3199 (Rec: 12/26/17 06:45 XYP0786 TELE-C32) Intake and Output Start: 12/21/17 10: 41 Freq: Status: Active Protocol: Document 12/21/17 10:41 [id number] (Rec: 12/21/17 10:41 FCQ8573 TELE-M04) Created 12/21/17 10:41 [id number] (Rec: 12/21/17 10:41 LLG2554 TELE-M04) General Impression: This patient is obtunded and unresponsive to my exam, although his daughter and say he has tried to speak and seems to recognize them. Head: Symmetrical Eyes: No Scleral Icterus, PERRLA Ears/Nose/Mouth/Throat: NL Teeth, Lips, Gums, Mucous Membranes Moist Neck: NL Appearance and Movements; NL JVP, Trachea Midline Cardiovascular: NL Sounds; No Murmurs; No JVD, RRR, No Edema Respiratory: Symmetrical Chest Expansion and Respiratory Effort Abdominal: NL Sounds; No Tenderness; No Distention, No Hepatosplenomegaly Extremities: No Edema, No Clubbing, Cyanosis Neurological: - - Unresponsive to touch, voice. 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 No other etiology for his AMS has been found. He did improve slightly with reinstitution of his Sinemet dose. He is not tolerating the NG tube. He is at risk for NMS (or DMS) if his Sinemet is abruptly d/c'd. I spoke to the patient's /HCP and daughter. They would like his NG tube removed and IV fluids d/c'd after the remaining daughter arrives from [place] tomorrow. 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 They understand that the patient has end-stage disease. They would like to try to give the Sinemet by mouth if he will accept it, to create a less abrupt withdrawal situation. I would suggest discontinuation of the IV fluids ALEENA, to avoid prolongation of , and would suggest the addition of Ativan 0.5 mg SL Q 6 h to help with the anticipated muscle rigidity of NMS, and would also give Roxanol 5 mg SL Q 4 h prn discomfort. If the patient is still alive on Friday, we will expect sign on to hospice services when he is able to go home, or may be able to secure a bed at the [facility] at that time. - Plan Consult Plan (MU): Hospice - Time On Unit Date of Evaluation: 12/26/17 Hospice Consult Time in: 11:30 Hospice Consult Time Out: 12:30 Hospice Consult Time Total: 60 > 50% of Time Spend In Counseling or Coordinating Care: Yes
--- NOTE | 2017-12-26 15:29 | PN ---
Subjective Date of Service: 12/26/17 Interval History: Patient has intermittent episodes on communication but none with this author. Still agitated about presence of NG tube. Discussed palliative options with family and they would like to continue current measures until tomorrow until after his daughter arrives from [place]. Then plan for discontinuation of NG tube and tapering of sinemet and discontinuing IV fluids. Family History: Unchanged from Admission Social History: Unchanged from Admission Past Medical History: Unchanged from Admission Objective Active Medications: Acetaminophen (Tylenol Supp*) 650 mg MN Q6H PRN PRN Reason: FEVER/PAIN Last Admin: 12/22/17 00:34 Dose: 650 mg Al Hydrox/Mg Hydrox/Simethicone (Maalox Plus*) 30 ml PO Q6H PRN PRN Reason: INDIGESTION Atropine Sulfate (Atropine 1% (Oral/Sl)*) 2 drop SL Q2H PRN PRN Reason: DISCOMFORT Carbidopa/Levodopa (Sinemet Cr 50/200(*)) 1 tab.cr PO BEDTIME [facility] Last Admin: 12/25/17 22:04 Dose: Not Given Carbidopa/Levodopa (Sinemet 25/100 Tab(*)) 3 tab PO 0800 [facility] Last Admin: 12/26/17 10:42 Dose: 3 tab Carbidopa/Levodopa (Sinemet 25/100 Tab(*)) 2.5 tab PO 1200 [facility] Last Admin: 12/26/17 13:53 Dose: 2.5 tab Carbidopa/Levodopa (Sinemet 25/100 Tab(*)) 2 tab PO 1630 [facility] Last Admin: 12/25/17 17:49 Dose: 2 tab Carbidopa/Levodopa (Sinemet 25/100 Tab(*)) 2 tab PO 1900 [facility] Last Admin: 12/25/17 22:16 Dose: 2 tab Docusate Sodium (Colace Cap*) 100 mg PO BID PRN PRN Reason: CONSTIPATION Heparin Sodium (Porcine) (Heparin Vial(*)) 5,000 units SUBCUT Q8HR [facility] Last Admin: 12/26/17 14:01 Dose: 5,000 units Lactated Ringer's (Lactated Ringers 1000 Ml Bag*) 1,000 mls @ 75 mls/hr IV PER RATE [facility] Last Admin: 12/26/17 13:52 Dose: 75 mls/hr Lorazepam (Ativan Inj*) 1 mg IV PUSH Q6H PRN PRN Reason: AGITATION Last Admin: 12/26/17 04:01 Dose: 1 mg Ondansetron HCl (Zofran Inj*) 4 mg IV Q4H PRN PRN Reason: NAUSEA/VOMITING Senna (Senokot Tab*) 1 tab PO BID PRN PRN Reason: CONSTIPATION Vital Signs - 8 hr 12/26/17 12/26/17 07:29 07:48 Temperature 97.1 F Pulse Rate 66 Respiratory 20 18 Rate Blood Pressure 116/65 (mmHg) O2 Sat by Pulse 98 Oximetry Oxygen Devices in Use Now: None Appearance: Patient is an 82yo male who appears stated age and is sitting in the bed in [facility]. Eyes: No Scleral Icterus, PERRLA Ears/Nose/Mouth/Throat: NL Teeth, Lips, Gums, - - Dry mucus membranes with dried secretions Neck: NL Appearance and Movements; NL JVP, Trachea Midline Respiratory: Symmetrical Chest Expansion and Respiratory Effort, - - Crackles in bases. Cardiovascular: NL Sounds; No Murmurs; No JVD, RRR, No Edema Abdominal: NL Sounds; No Tenderness; No Distention, No Hepatosplenomegaly Lymphatic: No Cervical Adenopathy Extremities: No Edema, No Clubbing, Cyanosis Skin: No Rash or Ulcers, No Nodules or Sclerosis Neurological: - - Responsive only to noxious stimuli. Result Diagrams: 12/25/17 05:14 12/25/17 05:14 Microbiology and Other Data: . Assess/Plan/Problems-Billing Assessment: Mr. Redd is an 82yo male with a PMH for Parkinson's, HLD, HTN who presents with an acute deterioration in his mental status and physical capabilities within the past week with mild improvement overnight but continued severe deterioration in functional status. - Patient Problems (1) Altered mental status Current Visit: Yes Status: Acute Code(s): R41.82 - ALTERED MENTAL STATUS, UNSPECIFIED SNOMED Code(s): 483417290 Comment: Stable, possibly slightly improved. Unclear etiology. No further fever. Temp to 100.8 12/21/17 with concern for nuchal rigidity. NG tube placed for consistent administration of sinemet as abrupt withdrawal can lead to dopaminergic malignant syndrome and explain AMS, fever, and rigidity ( CK elevated but decreased and almost to normal range). Also had LP 3/25/18. While this may be contributing, likely not purely the cause of AMS. No evidence of infection thus far. ESR/CRP normal. UA neg, cxray neg. CSF negative as well. No electrolyte abnormalities. B12, folate and thyroid studies normal. Patient has had an acute decrease in his mental and physical capability not consistent with the general clinical course of idiopathic parkinson's disease. Recent decrease in Simemet not likely cause of deterioration. CT and MRI brain with no abnormality. Question if this reflects underlying Parkinson's Plus disorder. Slight improvement after consistent administration of sinemet. However, plan still for palliative care after daughter arrives. (2) Parkinsons disease Current Visit: Yes Status: Acute Code(s): G20 - PARKINSON'S DISEASE SNOMED Code(s): 82129322 Comment: Continue Simemet with dosing per neurology. Abrupt decline in congnitive functioning not consistent with progression of parkinson's. Follows with Dr. Rouse outpatient. (3) Hyperlipidemia Current Visit: Yes Status: Acute Code(s): E78.5 - HYPERLIPIDEMIA, UNSPECIFIED SNOMED Code(s): 14624749 Comment: Hold atorvastatin. (4) Hypertension Current Visit: Yes Status: Acute Code(s): I10 - ESSENTIAL (PRIMARY) HYPERTENSION SNOMED Code(s): 07108872 Comment: SBP 110s. Has been hypotensive recently, HCTZ has been stopped (5) Thrombocytopenia Current Visit: Yes Status: Acute Code(s): D69.6 - THROMBOCYTOPENIA, UNSPECIFIED SNOMED Code(s): 629978959 Comment: Platelets not checked. No active bleeding, plan for palliative care. Will D/C heparin and ASA. (6) Urinary retention Current Visit: Yes Status: Acute Code(s): R33.9 - RETENTION OF URINE, UNSPECIFIED SNOMED Code(s): 698484809 Comment: Acutely retaining urine early in hospitalization. Continue piper catheter. (7) DVT prophylaxis Current Visit: Yes Status: Acute Code(s): XVV5869 - SNOMED Code(s): 065433876 Comment: Heparin discontinued for comfort. (8) DNR (do not resuscitate) Current Visit: Yes Status: Acute Comment: Consideration for hospice Status and Disposition: Admitted inpatient. Poor prognosis given rapid decline without reversible etiology thus far. Consideration for Hospice.
[2017-12-26] MEDS: Carbidopa/Levodop CR 50/200(*) TAB.CR PO SCH (22:02)
[2017-12-27] MEDS: Carbidopa/Levodop 25/100 MG TAB(*) PO SCH ×3 (08:59→18:33)
[2017-12-27] MEDS: LORazepam INJ* 2 MG/ML 1 ML VIAL IV PUSH PRN ×2 (13:11→20:30)
--- NOTE | 2017-12-27 14:03 | PN ---
Subjective Date of Service: 12/27/17 Interval History: Patient much more alert and communicative today. Patient denies pain and states he is hungry. Not Oriented beyond self. Patient denies CP, SOB, N/V, abdominal pain. Discussed with family tapering sinemet and timing of removing NG tube. Family would still like taper if possible and would still like to go forward with comfort care. Family History: Unchanged from Admission Social History: Unchanged from Admission Past Medical History: Unchanged from Admission Objective Active Medications: Acetaminophen (Tylenol Supp*) 650 mg NM Q6H PRN PRN Reason: FEVER/PAIN Last Admin: 12/22/17 00:34 Dose: 650 mg Atropine Sulfate (Atropine 1% (Oral/Sl)*) 2 drop SL Q2H PRN PRN Reason: DISCOMFORT Carbidopa/Levodopa (Sinemet Cr 50/200(*)) 1 tab.cr PO BEDTIME [facility] Last Admin: 12/26/17 22:02 Dose: 1 tab.cr Carbidopa/Levodopa (Sinemet 25/100 Tab(*)) 3 tab PO 0800 [facility] Last Admin: 12/27/17 08:59 Dose: 3 tab Carbidopa/Levodopa (Sinemet 25/100 Tab(*)) 2.5 tab PO 1200 [facility] Last Admin: 12/27/17 12:30 Dose: 2.5 tab Carbidopa/Levodopa (Sinemet 25/100 Tab(*)) 2 tab PO 1900 [facility] Last Admin: 12/26/17 19:15 Dose: 2 tab Lorazepam (Ativan Inj*) 1 mg IV PUSH Q6H PRN PRN Reason: AGITATION Last Admin: 12/27/17 13:11 Dose: 1 mg Ondansetron HCl (Zofran Inj*) 4 mg IV Q4H PRN PRN Reason: NAUSEA/VOMITING Vital Signs - 8 hr 12/27/17 12/27/17 12/27/17 08:00 08:01 08:12 Temperature 97.4 F 97.4 F Pulse Rate 62 62 Respiratory 18 16 16 Rate Blood Pressure 121/43 121/43 (mmHg) O2 Sat by Pulse 99 99 Oximetry 12/27/17 12/27/17 12/27/17 12:15 13:11 13:39 Temperature 97.3 F Pulse Rate 65 Respiratory 20 22 24 Rate Blood Pressure 96/45 (mmHg) O2 Sat by Pulse 100 Oximetry 12/27/17 13:46 Temperature Pulse Rate Respiratory Rate Blood Pressure (mmHg) O2 Sat by Pulse 95 Oximetry Oxygen Devices in Use Now: None Appearance: Patient is an 82yo male who appears stated age and is sitting in the bed in NAD. Eyes: No Scleral Icterus, PERRLA Ears/Nose/Mouth/Throat: NL Teeth, Lips, Gums, Clear Oropharnyx, Mucous Membranes Moist Neck: NL Appearance and Movements; NL JVP, Trachea Midline Respiratory: Symmetrical Chest Expansion and Respiratory Effort, Clear to Auscultation Cardiovascular: NL Sounds; No Murmurs; No JVD, RRR, No Edema Abdominal: NL Sounds; No Tenderness; No Distention Lymphatic: No Cervical Adenopathy Skin: No Nodules or Sclerosis, - - Blisters on B/L Heels. Neurological: - - Right sided facial droop. Weak throughout. Not able to cooperate with full neurologic testing. A/Ox1. Result Diagrams: 12/25/17 05:14 12/25/17 05:14 Microbiology and Other Data: . Assess/Plan/Problems-Billing Assessment: Mr. Redd is an 82yo male with a PMH for Parkinson's, HLD, HTN who presents with an acute deterioration in his mental status and physical capabilities within the past week with mild improvement overnight but continued severe deterioration in functional status. - Patient Problems (1) Altered mental status Current Visit: Yes Status: Acute Code(s): R41.82 - ALTERED MENTAL STATUS, UNSPECIFIED SNOMED Code(s): 612308873 Comment: Unclear etiology No evidence of infection. ESR/CRP normal. UA neg, cxray neg. CSF negative as well. No electrolyte abnormalities. B12, folate and thyroid studies normal. Patient has had an acute decrease in his mental and physical capability not consistent with the general clinical course of idiopathic parkinson's disease. Recent decrease in Simemet not likely cause of deterioration. CT and MRI brain with no abnormality. Question if this reflects underlying Parkinson's Plus disorder. Marked improvement today. Plan still for taper of sinemet and then comfort care. (2) Parkinsons disease Current Visit: Yes Status: Acute Code(s): G20 - PARKINSON'S DISEASE SNOMED Code(s): 41157198 Comment: Start sinemet taper. Recommended 1 pill from each dose every couple days. May have to accelerate faster than that rate due to constraints of needing NG tube for administration. Abrupt decline in congnitive functioning not consistent with progression of parkinson's. (3) Hyperlipidemia Current Visit: Yes Status: Acute Code(s): E78.5 - HYPERLIPIDEMIA, UNSPECIFIED SNOMED Code(s): 38027013 Comment: Hold atorvastatin. (4) Hypertension Current Visit: Yes Status: Acute Code(s): I10 - ESSENTIAL (PRIMARY) HYPERTENSION SNOMED Code(s): 03839703 Comment: SBP 110s. Has been hypotensive recently, HCTZ has been stopped (5) Thrombocytopenia Current Visit: Yes Status: Acute Code(s): D69.6 - THROMBOCYTOPENIA, UNSPECIFIED SNOMED Code(s): 187015537 Comment: Platelets not checked. No active bleeding, plan for palliative care. Will D/C heparin and ASA. (6) Urinary retention Current Visit: Yes Status: Acute Code(s): R33.9 - RETENTION OF URINE, UNSPECIFIED SNOMED Code(s): 541740143 Comment: Acutely retaining urine early in hospitalization. Continue piper catheter for comfort. (7) DVT prophylaxis Current Visit: Yes Status: Acute Code(s): ZLR6888 - SNOMED Code(s): 423350699 Comment: Heparin discontinued for comfort. (8) DNR (do not resuscitate) Current Visit: Yes Status: Acute Comment: Partial Comfort care, Hopeful hospice sign-on on Friday. Status and Disposition: Admitted inpatient. Poor prognosis given rapid decline without reversible etiology. Hopeful hospice sign on Friday.
--- NOTE | 2017-12-27 16:36 | PN ---
NEUROLOGY FOLLOWUP NOTE: DATE OF FOLLOWUP: 12/27/17 LOCATION: He is in room 405. HOSPITALIST: LOLIS Hutchins CHIEF COMPLAINT: Parkinsonism. INTERVAL HISTORY: Since yesterday, Mr. Redd continues to be agitated and requiring sedation. He was seen by Dr. Stern yesterday. Reviewed Dr. Kessler' s records going back to 2015 when he came in with bilateral upper extremity tremor, mainly with action. He also had a parkinsonian gait. He has rapidly declined in 2 years, highly suggested that he does not have idiopathic Parkinson 's disease, but rather atypical parkinsonism. His history of hypotension raises the possibility of multisystem atrophy. I reviewed his MRI imaging and I do not see any unusual features other than atrophy. I do not see mid brain atrophy in particular, making progressive supranuclear palsy less likely. MEDICATIONS: Reviewed and he is currently on: 1. Sinemet CR 50/200 at bedtime. 2. Regular release Sinemet 25/100 3 tablets at 8 a.m., 2.5 tablets at noon, 2 tablets at 5 p.m. 3. He receives lorazepam as needed for agitation. 4. Atropine sulfate oral 2 drops q.2 hours as needed for discomfort. PHYSICAL EXAMINATION: Most recent blood pressure is 120/43, but it then dropped after he was given some Ativan and is 97/48. Other blood pressures fluctuate from a high of 162/62 earlier this morning, 285/50 a couple of days ago. Respiratory rate in the 20s and oxygen saturation is 95%. Heart is in a regular rhythm and I do not hear any murmurs. He just received some Ativan. When I open his eyes, his pupils react pretty well from about 3 down to 2 mm. He has symmetrical facial grimacing. He has rigidity of all limbs, worse in the legs, but symmetrical. There are no adventitious movements. When stimulated, he moves restlessly. LABORATORY DATA: Reviewed and of interest, he has had low platelet count since he has been here, most recently 63,000. It was 93,000 when he came in. White blood cell count is normal at 8.3. Chemistry is notable for a low creatinine at 0.57 and BUN elevated at 34 on 12/25/17. Creatine kinase was elevated, but came down to 247 as of 12/20/17. 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 Family is not currently available. Gerson Simeon said they have some questions regarding tapering his carbidopa/levodopa and risk of neuroleptic malignant syndrome. I asked his nurse to give me a call when they return to the room. Otherwise, palliative care is being pursued, which certainly seems appropriate. [id number]/[facility] #: [id number] ANGY
[2017-12-28] MEDS: Carbidopa/Levodop 25/100 MG TAB(*) PO SCH ×3 (09:30→20:23)
--- NOTE | 2017-12-28 13:26 | PN ---
Subjective Date of Service: 12/28/17 Interval History: Minimal response today. Did open eyes to command, responded to name. oriented to place and name, Denied chest pain or shortness of breath. Family History: Unchanged from Admission Social History: Unchanged from Admission Past Medical History: Unchanged from Admission Objective Active Medications: Acetaminophen (Tylenol Supp*) 650 mg LA Q6H PRN PRN Reason: FEVER/PAIN Last Admin: 12/22/17 00:34 Dose: 650 mg Atropine Sulfate (Atropine 1% (Oral/Sl)*) 2 drop SL Q2H PRN PRN Reason: DISCOMFORT Carbidopa/Levodopa (Sinemet 25/100 Tab(*)) 2 tab PO 0800 [facility] Last Admin: 12/28/17 09:30 Dose: 2 tab Carbidopa/Levodopa (Sinemet 25/100 Tab(*)) 1.5 tab PO 1200 [facility] Last Admin: 12/28/17 12:30 Dose: 1.5 tab Carbidopa/Levodopa (Sinemet 25/100 Tab(*)) 1 tab PO 1900 [facility] Last Admin: 12/27/17 18:33 Dose: 1 tab Lorazepam (Ativan Inj*) 1 mg IV PUSH Q6H PRN PRN Reason: AGITATION Last Admin: 12/27/17 20:30 Dose: 1 mg Ondansetron HCl (Zofran Inj*) 4 mg IV Q4H PRN PRN Reason: NAUSEA/VOMITING Vital Signs - 8 hr 12/28/17 12/28/17 12/28/17 07:31 07:40 11:05 Temperature 97.9 F Pulse Rate 66 71 Respiratory 16 18 Rate Blood Pressure 123/51 96/50 (mmHg) O2 Sat by Pulse 96 94 Oximetry Oxygen Devices in Use Now: None Appearance: appears comfortabel resting in bed Eyes: No Scleral Icterus Ears/Nose/Mouth/Throat: Clear Oropharnyx, - - mucous membranes very dry Neck: NL Appearance and Movements; NL JVP Respiratory: Symmetrical Chest Expansion and Respiratory Effort - crackles in bilat bases Cardiovascular: - - edema noted to hands and lower legs bilat. Abdominal: NL Sounds; No Tenderness; No Distention Extremities: No Clubbing, Cyanosis Neurological: - - oriented to place ant name, confused to time stating of 1954 Result Diagrams: 12/25/17 05:14 03/29/18 05:14 Microbiology and Other Data: . Assess/Plan/Problems-Billing Assessment: Mr. Redd is an 82yo male with a PMH for Parkinson's, HLD, HTN who presents with an acute deterioration in his mental status and physical capabilities within the past week with mild improvement overnight but continued severe deterioration in functional status. - Patient Problems (1) Altered mental status Current Visit: Yes Status: Acute Code(s): R41.82 - ALTERED MENTAL STATUS, UNSPECIFIED SNOMED Code(s): 746411477 Comment: Unclear etiology No evidence of infection. ESR/CRP normal. UA neg, cxray neg. CSF negative as well. No electrolyte abnormalities. B12, folate and thyroid studies normal. Patient has had an acute decrease in his mental and physical capability not consistent with the general clinical course of idiopathic parkinson's disease. CT and MRI brain with no abnormality. Patient lethargic today ~ will give last dose of sinemet at 1900 and then d/c NG tube~ family wishes comfort care and home with hospice (2) Hypertension Current Visit: Yes Status: Acute Code(s): I10 - ESSENTIAL (PRIMARY) HYPERTENSION SNOMED Code(s): 01508707 Comment: BP 96/50 HCTZ has been stopped ~ suspect this is related to the decline in his overall condition. (3) Parkinsons disease Current Visit: Yes Status: Acute Code(s): G20 - PARKINSON'S DISEASE SNOMED Code(s): 80410865 Comment: ~ sinemet taper. ~ Will given evening dose of sinemet and then d/c NG tube at family's wishes~ Comfort measures only ~Abrupt decline in congnitive functioning not consistent with progression of parkinson's. (4) Urinary retention Current Visit: Yes Status: Acute Code(s): R33.9 - RETENTION OF URINE, UNSPECIFIED SNOMED Code(s): 217054877 Comment: Acutely retaining urine early in hospitalization. Continue piper catheter for comfort. (5) DVT prophylaxis Current Visit: Yes Status: Acute Code(s): [id number] - SNOMED Code(s): 022146368 Comment: Heparin discontinued for comfort. (6) DNR (do not resuscitate) Current Visit: Yes Status: Acute Comment: Comfort care, Hopeful hospice sign-on on Friday. Status and Disposition: Admitted inpatient. Poor prognosis given rapid decline without reversible etiology. Hopeful hospice sign on Friday.
[2017-12-29] MEDS: Carbidopa/Levodop 25/100 MG TAB(*) PO SCH ×3 (07:12→17:53)
[2017-12-29 08:06] VITALS: BP 122/70
[2017-12-29] MEDS ORDERED: Morphine ORAL CONCENTRATE* 5 MG/0.25 ML ORAL.SYRIN SL PRN (09:16)
--- NOTE | 2017-12-29 13:58 | PN ---
Subjective Date of Service: 12/29/17 Interval History: Patient is persistently alert and oriented to self and place. Able to swallow better today. Denies discomfort. States he wants to go home. Able to swallow small bites of applesauce today with slight amounts of pocketing and cough. Family History: Unchanged from Admission Social History: Unchanged from Admission Past Medical History: Unchanged from Admission Objective Active Medications: Acetaminophen (Tylenol Supp*) 650 mg IN Q6H PRN PRN Reason: FEVER/PAIN Last Admin: 12/22/17 00:34 Dose: 650 mg Atropine Sulfate (Atropine 1% (Oral/Sl)*) 2 drop SL Q2H PRN PRN Reason: DISCOMFORT Carbidopa/Levodopa (Sinemet 25/100 Tab(*)) 2 tab PO 0800 [facility] Last Admin: 12/29/17 07:12 Dose: Not Given Carbidopa/Levodopa (Sinemet 25/100 Tab(*)) 1.5 tab PO 1200 [facility] Last Admin: 12/29/17 10:34 Dose: 1.5 tab Carbidopa/Levodopa (Sinemet 25/100 Tab(*)) 1 tab PO 1900 [facility] Last Admin: 12/28/17 20:23 Dose: 1 tab Lorazepam (Ativan Inj*) 1 mg IV PUSH Q6H PRN PRN Reason: AGITATION Last Admin: 12/29/17 00:00 Dose: 1 mg Morphine Sulfate (Morphine Oral Concentrate*) 5 mg SL Q2H PRN PRN Reason: PAIN Ondansetron HCl (Zofran Inj*) 4 mg IV Q4H PRN PRN Reason: NAUSEA/VOMITING Vital Signs - 8 hr 12/29/17 12/29/17 12/29/17 07:42 08:00 08:06 Pulse Rate 81 Respiratory 20 18 Rate Blood Pressure 178/50 122/70 (mmHg) O2 Sat by Pulse 93 Oximetry Oxygen Devices in Use Now: None Appearance: Patient is an 82yo male who appears stated age and is sitting in the bed in [facility]. Eyes: No Scleral Icterus, PERRLA Ears/Nose/Mouth/Throat: - - Large amount of dry mucus in mouth. Dry mucous membranes and chapped lips. Neck: NL Appearance and Movements; NL JVP, Trachea Midline Respiratory: Symmetrical Chest Expansion and Respiratory Effort, Clear to Auscultation Cardiovascular: NL Sounds; No Murmurs; No JVD, RRR, No Edema Abdominal: NL Sounds; No Tenderness; No Distention, No Hepatosplenomegaly Lymphatic: No Cervical Adenopathy Extremities: No Edema, No Clubbing, Cyanosis Skin: No Nodules or Sclerosis, - - Blisters on B/L Heels. Neurological: - - CN II-XII intact. No focal deficits. Result Diagrams: 12/25/17 05:14 12/25/17 05:14 Microbiology and Other Data: . Assess/Plan/Problems-Billing Assessment: Mr. Redd is an 82yo male with a PMH for Parkinson's, HLD, HTN who presents with an acute deterioration in his mental status and physical capabilities with mild recovery but not returned to prior baseline. - Patient Problems (1) Altered mental status Current Visit: Yes Status: Acute Code(s): R41.82 - ALTERED MENTAL STATUS, UNSPECIFIED SNOMED Code(s): 599140572 Comment: Unclear etiology No evidence of infection. ESR/CRP normal. UA neg, cxray neg. CSF negative as well. No electrolyte abnormalities. B12, folate and thyroid studies normal. Patient has had an acute decrease in his mental and physical capability not consistent with the general clinical course of idiopathic parkinson's disease. CT and MRI brain with no abnormality. Patient improved but not back to baseline. NG tube out and tolerating simemet by mouth. Plan for home with Hospice. (2) Parkinsons disease Current Visit: Yes Status: Acute Code(s): G20 - PARKINSON'S DISEASE SNOMED Code(s): 69502078 Comment: Continue current dose of Sinemet Abrupt decline in congnitive functioning not consistent with progression of parkinson's. 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 (3) Hyperlipidemia Current Visit: Yes Status: Acute Code(s): E78.5 - HYPERLIPIDEMIA, UNSPECIFIED SNOMED Code(s): 82518435 Comment: Hold atorvastatin. (4) Hypertension Current Visit: Yes Status: Acute Code(s): I10 - ESSENTIAL (PRIMARY) HYPERTENSION SNOMED Code(s): 76817658 Comment: Hypotension may be due to MSA. No meds, Comfort care. (5) Thrombocytopenia Current Visit: Yes Status: Acute Code(s): D69.6 - THROMBOCYTOPENIA, UNSPECIFIED SNOMED Code(s): 200702553 Comment: Platelets not checked. No active bleeding, plan for palliative care. Will D/C heparin and ASA. (6) Urinary retention Current Visit: Yes Status: Acute Code(s): R33.9 - RETENTION OF URINE, UNSPECIFIED SNOMED Code(s): 775714644 Comment: Acutely retaining urine early in hospitalization. Continue piper catheter for comfort. (7) DVT prophylaxis Current Visit: Yes Status: Acute Code(s): MZH6238 - SNOMED Code(s): 674294527 Comment: Heparin discontinued for comfort. (8) DNR (do not resuscitate) Current Visit: Yes Status: Acute Comment: Comfort care, Hopeful hospice sign-on on Friday. Status and Disposition: Admitted inpatient. Poor prognosis given rapid decline without reversible etiology. Hopeful hospice sign on Friday.
[2017-12-29] MEDS: LORazepam INJ* 2 MG/ML 1 ML VIAL IV PUSH PRN ×2 (14:22)
[2017-12-30] MEDS: LORazepam INJ* 2 MG/ML 1 ML VIAL IV PUSH PRN ×2 (05:04→12:04)
[2017-12-30] MEDS: Carbidopa/Levodop 25/100 MG TAB(*) PO SCH ×2 (07:16→11:12)
[2017-12-30] MEDS ORDERED: LORazepam INJ* 2 MG/ML 1 ML VIAL IV PUSH ONE (07:35)
[2017-12-30] MEDS ORDERED: Haloperidol INJ IV/IM* 5 MG/ML AMP IV SLOW PU PRN (09:19)
--- NOTE | 2017-12-30 09:36 | PN ---
Progress Note - Progress Note Date of Service: 12/30/17 Note: Patient was scheduled to be discharged home today on hospice services, however over the last 36 hours he has developed significant agitation requiring IV Ativan to settle him, and apparently it requires 3 staff members to be able to administer the medication because he lashes out and becomes combative and is very strong. I spoke to his who is not able to manage this degree of physical agitation. I visited with him and noted intense muscular rigidity and limited ability to respond. We will make him GIP status for now, but still work on obtaining adequate sedation without using neuroleptic medication. I have requested Dr. Hendrix to initiate scheduled po lorazepam at 2 mg Q 6 h, and continue 1 mg IV doses as needed. Mr. Redd continues to take almost nothing p.o. and has very limited UO, so has a very limited prognosis of less than a week at this point.
[2017-12-30] MEDS ORDERED: OLANzapine TAB*ODT* 5 MG PO PRN (09:56)
[2017-12-30] MEDS ORDERED: LORazepam TAB(*) 1 MG PO SCH (10:00)
[2017-12-30] MEDS: Morphine ORAL CONCENTRATE* 5 MG/0.25 ML ORAL.SYRIN SL PRN ×2 (10:19→11:58)
[2017-12-30] MEDS ORDERED: Morphine ORAL CONCENTRATE* 5 MG/0.25 ML ORAL.SYRIN SL PRN (12:01)
[2017-12-30] MEDS ORDERED: LORazepam INJ* 2 MG/ML 1 ML VIAL IV PUSH PRN (12:04)
--- NOTE | 2017-12-31 12:43 | DS ---
DISCHARGE SUMMARY AND ADMISSION HISTORY AND PHYSICAL DATE OF ADMISSION: 12/21/17 DATE OF DISCHARGE: 12/30/17 The patient is being transitioned to inpatient hospice status. ATTENDING PROVIDER: Ignacia Lawrence MD * (DICTATED BY LOLIS MOTA) PRIMARY DISCHARGE DIAGNOSES: 1. Parkinsonism. 2. Altered mental status. 3. Weakness. SECONDARY DISCHARGE DIAGNOSES: 1. History of hypertension. 2. Hyperlipidemia. STUDIES DONE DURING THIS HOSPITALIZATION: 1. Brain CT from 12/20/17 read as acute involutional changes, stigmata of chronic small vessel ischemic changes, no acute intracranial process evident. 2. Brain MRI from 12/22/17 read as chronic involutional change, chronic small vessel ischemic changes, no restricted diffusion to suggest acute infarct. 3. Electroencephalogram from 12/22/17 read as abnormal EEG due to loss of expected gradient and diffuse mixed frequency slowing for the majority of the recording. The patient stimulated some emergence of gradients and a slow posterior rhythm, approximately 5 Hz. These are suggestive of moderate nonspecific diffuse encephalopathy. There are no epileptiform abnormalities. 4. Electrocardiogram from 12/20/17 read as right bundle-branch block. I see some elevation in V2, V3, likely related to right bundle-branch block. No ST segment abnormalities. Prolonged OH. Normal axis. No other abnormalities. 5. EKG from 12/24/17 shows no significant changes from previous exam. 6. Chest x-ray from 12/20/17 read as low lung volumes. No active cardiopulmonary disease. 7. Six chest x-rays from 12/23/17 through 12/25/17, all performed for NG tube placement confirmation showed only low lung volumes and atelectasis. MEDICATIONS AT DISCHARGE: 1. Tylenol 650 mg p.r. q.6 hours as needed. 2. Atropine 2 drops sublingual q.2 hours as needed. 3. Lorazepam 1 mg IV push q.1 hours as needed for agitation. 4. Lorazepam 2 mg p.o. q.6 hours as scheduled. 5. Morphine oral concentration 10 mg sublingual q.2 hours as needed. 6. [id number] mg p.o. b.i.d. as needed for agitation. 7. Zofran 4 mg IV q.4 hours as needed. HOSPITAL COURSE: This is a brief summary of the patient's presentation. For more details, please see the history and physical from Dr. Nay Marmolejo on . In brief, the patient is an 82-year-old male with past medical history significant for the above, who presents to the hospital with progressive altered mental status, weakness, and a fall. The patient had a long-term decline consistent with an accelerated form of parkinsonism, this culminated with hypotension and altered mental status on his day of admission. The patient had a fall 4 days before his admission. The patient had no other signs of infection. During the patient's hospitalization, he remained minimally responsive with no signs of infection, no signs of new intracranial pathology. The patient was unable to swallow past the second day of his admission and had an NG placed for Sinemet administration. The patient had recently before his admission had his Sinemet decreased, but then increased again to its previous levels. It seemed to have little to no effect on the patient's steady decline. No cause of the patient's decline was found including lumbar puncture, urine culture, and blood cultures. The patient was seen in consultation by Dr. Sandra Stern of Neurology, who believes this was due to his Parkinson's disease, but was unclear of the inciting event for his rapid decline. The patient's Sinemet was continued during his hospitalization to help to facilitate his alertness and ability to swallow until his daughters were able to arrive from [facility]. The patient was for a significant period entirely unable to answer questions, but then his mental status improved with consisting dosing of Sinemet and then continued to improve after his Sinemet dosing was decreased. The patient at one point had concern for dopaminergic malignant syndrome due to abrupt discontinuation of his Sinemet due to not being able to take medications by mouth. However, when the patient's Sinemet was discontinued again later in his hospitalization with a very abbreviated taper, he had no signs of dopaminergic malignant syndrome. The patient was seen in consultation by Dr. Ely Moreno of Palliative Medicine and the patient was deemed to be eligible for hospice and the family would prefer to take an approach focusing on comfort after the patient's daughters had arrived. The patient was planned to be discharged on 12/30/17 to home; however, the patient became very agitated and difficult to control, refractory to Ativan and morphine. The patient's behaviors were deemed to be uncontrollable without IV medications and he was transitioned to inpatient hospice. PHYSICAL EXAMINATION ON THE DAY OF DISCHARGE: General: The patient is an 82- year-old male who appears older than stated age and sitting in the bed, in moderate distress. Vital Signs: Temperature 97.6, pulse rate 68, respiratory rate 20, oxygen saturation 91%, blood pressure 118/50. HEENT: Head normocephalic, atraumatic. Sclerae anicteric. No conjunctival injection. Nasal mucosa dry with dry secretions in the posterior pharynx and on the tongue. No lymphadenopathy. No carotid bruits auscultated. No JVD. Cardiac: Regular rate and rhythm. No clicks, murmurs, gallops, or rubs. Pulses 2+. Moderate dorsalis pedis, posterior tibialis, and radial areas. Respiratory: Clear to auscultation bilaterally. No wheezes, rales, or rhonchi. Good air exchange bilaterally. Abdomen: Soft, nontender, nondistended. Bowel sounds present and active in all 4 quadrants. No hepatosplenomegaly. No abdominal bruits auscultated. Genitourinary: The patient has a Malik catheter placed. No suprapubic or CVA tenderness. Neurologic: The patient is not alert. The patient is able to respond to verbal stimuli, but not provided coherent responses. The patient has a tremor consistent with parkinsonism, but is otherwise unable to cooperate in neurologic testing. Psychiatric: The patient is very agitated and aggressive with staff. DISCHARGE PLAN: The patient is being discharged from inpatient status to inpatient hospice. The patient will be continued on medications as above for comfort. The patient will only have food for comfort. The patient will not be continued on his Sinemet and the family was in agreement with this plan. LOLIS MOTA [id number]/[facility] #: [id number] ANGY
== END 2017-12-30 12:00 | disposition hospice, inpatient (51) | DRG 947 ==
LOC: ED 20:37 → MEDTELE 12-21 00:35 → MED 12-26 16:40
PROVIDERS: ADMIT Pediatrics; ATTEND Internal Medicine
PROC: 009U3ZX Drainage of Spinal Canal, Percutaneous Approach, Diagnostic (ICD-10-PCS; principal; 2017-12-22 15:00)
DX: R41.82 Altered mental status, unspecified (principal); G93.40 Encephalopathy, unspecified; D69.6 Thrombocytopenia, unspecified; G20 Parkinson's disease; R53.1 Weakness; I10 Essential (primary) hypertension; R63.4 Abnormal weight loss; Z66 Do not resuscitate; R33.9 Retention of urine, unspecified; E78.5 Hyperlipidemia, unspecified; Z79.899 Other long term (current) drug therapy; Z68.25 Body mass index [BMI] 25.0-25.9, adult; Z82.49 Family history of ischemic heart disease and other diseases of the circulatory system
CPT/HCPCS: 36415; 62270; 70450; 70551; 71045; 80048; 80053; 80061; 80307; 80329; 81003; 82140; 82550; 82607; 82746; 82945; 83036; 83605; 83921; 84157; 84439; 84443; 84484; 85025; 85060; 85610; 85652; 86140; 86592; 87040; 87070; 87086; 87205; 87529; 89051; 93005; 95819; 99283; A9270-GY; G0480; G8978-GP-CL; G8979-GP-CJ; J1644; J2060

== ENCOUNTER 2017-12-30 11:56 | Inpatient (IN) | payer OTHER ==
[2017-12-30] MEDS ORDERED: LORazepam INJ* 2 MG/ML 1 ML VIAL IV PUSH PRN (12:06)
[2017-12-30] MEDS ORDERED: Acetaminophen SUPP* 650 MG SUPP PR PRN (12:06)
[2017-12-30] MEDS ORDERED: Morphine ORAL CONCENTRATE* 5 MG/0.25 ML ORAL.SYRIN SL PRN (12:06)
[2017-12-30] MEDS ORDERED: OLANzapine TAB*ODT* 10 MG TAB PO PRN (12:07)
[2017-12-30] MEDS ORDERED: Ondansetron INJ* 2 MG/ML VIAL IV PRN (12:08)
[2017-12-30] MEDS: Morphine ORAL CONCENTRATE* 5 MG/0.25 ML ORAL.SYRIN SL PRN (13:22)
[2017-12-30] MEDS: LORazepam INJ* 2 MG/ML 1 ML VIAL IV PUSH PRN (13:23)
[2017-12-30] MEDS: LORazepam TAB(*) 0.5 MG PO SCH ×2 (17:03→20:27)
[2017-12-31] MEDS: Morphine ORAL CONCENTRATE* 5 MG/0.25 ML ORAL.SYRIN SL PRN ×4 (02:04→18:09)
[2017-12-31] MEDS: LORazepam TAB(*) 1 MG PO SCH ×4 (04:15→22:42)
[2017-12-31] MEDS: LORazepam TAB(*) 0.5 MG PO SCH (04:17)
[2017-12-31] MEDS: LORazepam INJ* 2 MG/ML 1 ML VIAL IV PUSH PRN ×2 (07:31→18:10)
--- NOTE | 2017-12-31 14:23 | PN ---
Subjective Date of Service: 12/31/17 Interval History: Patient disoriented and only responsive to painful stimuli when examined. Continues to be agitated and attempting to get out of bed. Family History: Unchanged from Admission Social History: Unchanged from Admission Past Medical History: Unchanged from Admission Objective Active Medications: Acetaminophen (Tylenol Supp*) 650 mg ME Q6H PRN PRN Reason: FEVER/PAIN Atropine Sulfate (Atropine 1% (Oral/Sl)*) 2 drop SL Q2H PRN PRN Reason: DISCOMFORT Lorazepam (Ativan Inj*) 1 mg IV PUSH Q1H PRN PRN Reason: ANXIETY Last Admin: 12/31/17 07:31 Dose: 1 mg Lorazepam (Ativan Tab(*)) 2 mg PO Q6H NORA Last Admin: 12/31/17 09:25 Dose: 2 mg Morphine Sulfate (Morphine Oral Concentrate*) 10 mg SL Q2H PRN PRN Reason: PAIN Last Admin: 12/31/17 07:31 Dose: 10 mg Olanzapine (Zyprexa *Odt*) 10 mg PO BID PRN PRN Reason: AGITATION Last Admin: 12/30/17 13:49 Dose: 10 mg Ondansetron HCl (Zofran Inj*) 4 mg IV Q6H PRN PRN Reason: NAUSEA Vital Signs - 8 hr 12/31/17 12/31/17 12/31/17 07:31 08:00 09:07 Respiratory 22 22 22 Rate 12/31/17 12/31/17 12/31/17 09:25 10:21 12:00 Respiratory 20 16 16 Rate Oxygen Devices in Use Now: None Appearance: Patient is an 82yo male who appears stated age and is sitting in the bed in mild distress due to agitation. Eyes: No Scleral Icterus, PERRLA Ears/Nose/Mouth/Throat: NL Teeth, Lips, Gums, Clear Oropharnyx, - - Dry Mucous Membranes. Respiratory: Symmetrical Chest Expansion and Respiratory Effort, Clear to Auscultation Cardiovascular: NL Sounds; No Murmurs; No JVD, RRR, No Edema Abdominal: NL Sounds; No Tenderness; No Distention, No Hepatosplenomegaly Lymphatic: No Cervical Adenopathy Extremities: No Edema, No Clubbing, Cyanosis Skin: No Nodules or Sclerosis, - - Blisters on B/L heels Neurological: - - Responsive only to painful stimuli. Tremor. Assess/Plan/Problems-Billing Assessment: Patient is an 82yo male with a PMH for Rapidly advancing Parkinson's disease, HTN, HLD who has been hospitalized for an extended period with no improvement and has now been transitioned to inpatient hospice care due to agitation requiring IV medication. - Patient Problems (1) Altered mental status Current Visit: No Status: Acute Code(s): R41.82 - ALTERED MENTAL STATUS, UNSPECIFIED SNOMED Code(s): 010669982 Comment: Unclear etiology No evidence of infection. ESR/CRP normal. UA neg, cxray neg. CSF negative as well. No electrolyte abnormalities. B12, folate and thyroid studies normal. Patient has had an acute decrease in his mental and physical capability not consistent with the general clinical course of idiopathic parkinson's disease. CT and MRI brain with no abnormality. Inpatient Hospice (2) Parkinsons disease Current Visit: No Status: Acute Code(s): G20 - PARKINSON'S DISEASE SNOMED Code(s): 39208572 Comment: Discontinue Sinemet Abrupt decline in congnitive functioning not consistent with progression of parkinson's. 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 (3) Urinary retention Current Visit: No Status: Acute Code(s): R33.9 - RETENTION OF URINE, UNSPECIFIED SNOMED Code(s): 160640556 Comment: Acutely retaining urine early in hospitalization. Continue piper catheter for comfort. (4) DNR (do not resuscitate) Current Visit: No Status: Acute Comment: Comfort care, Inpatient hospice. Status and Disposition: Inpatient hospice.
[2018-01-01] MEDS: Morphine ORAL CONCENTRATE* 5 MG/0.25 ML ORAL.SYRIN SL PRN ×2 (03:09→10:49)
[2018-01-01] MEDS: LORazepam TAB(*) 1 MG PO SCH ×2 (04:50→10:39)
--- NOTE | 2018-01-01 12:08 | PN ---
Subjective Date of Service: 01/01/18 Interval History: Patient seen and examined at bedside. Pt is non-responsive at this time and appears to be comfortable. Family History: Unchanged from Admission Social History: Unchanged from Admission Past Medical History: Unchanged from Admission Objective Active Medications: Acetaminophen (Tylenol Supp*) 650 mg ME Q6H PRN Reason: FEVER/PAIN Atropine Sulfate (Atropine 1% (Oral/Sl)*) 2 drop SL Q2H PRN Reason: DISCOMFORT Lorazepam (Ativan Inj*) 1 mg IV PUSH Q1H PRN Reason: ANXIETY Lorazepam (Ativan Tab(*)) 2 mg PO Q6H NORA Morphine Sulfate (Morphine Oral Concentrate*) 10 mg SL Q2H PRN Reason: PAIN Olanzapine (Zyprexa *Odt*) 10 mg PO BID PRN Reason: AGITATION Ondansetron HCl (Zofran Inj*) 4 mg IV Q6H PRN Reason: NAUSEA Vital Signs - 8 hr 01/01/18 01/01/18 01/01/18 04:50 10:39 10:49 Respiratory 20 22 20 Rate Oxygen Devices in Use Now: None Appearance: NAD, laying in bed Ears/Nose/Mouth/Throat: - - Dry mucous membranes Respiratory: Symmetrical Chest Expansion and Respiratory Effort, - - Rhonchi bilateral Cardiovascular: NL Sounds; No Murmurs; No JVD, RRR Extremities: - - Bilateral LE edema Neurological: - - Non-responsive Lines/Tubes/Other Access: Clean, Dry and Intact Peripheral IV - site benign Nutrition: Taking PO's Assess/Plan/Problems-Billing Assessment: Mr. Redd is an 82yo male with a PMH for Rapidly advancing Parkinson's disease , HTN, HLD who has been hospitalized for an extended period with no improvement and has now been transitioned to inpatient hospice care due to agitation requiring IV medication. - Patient Problems (1) End of life care Code(s): Z51.5 - ENCOUNTER FOR PALLIATIVE CARE SNOMED Code(s): 830460484 Comment: - Continue supportive care (2) DVT prophylaxis Code(s): LMZ3196 - SNOMED Code(s): 368824677 Comment: - Held due to end of life care (3) DNR (do not resuscitate) Comment: Comfort care, Inpatient hospice. Status and Disposition: Inpatient hospice.
[2018-01-01] MEDS: Morphine VIAL* 4 MG/ML VIAL (1 ml vial) IV SCH ×2 (15:20→22:38)
[2018-01-01] MEDS: LORazepam INJ* 2 MG/ML 1 ML VIAL IV PUSH SCH ×2 (15:20→22:28)
[2018-01-01] MEDS: LORazepam INJ* 2 MG/ML 1 ML VIAL IV PUSH PRN (17:20)
[2018-01-01] MEDS: Morphine VIAL* 4 MG/ML VIAL (1 ml vial) IV PRN (19:31)
[2018-01-02 02:22] VITALS: BP 97/37
[2018-01-02] MEDS: LORazepam INJ* 2 MG/ML 1 ML VIAL IV PUSH SCH ×4 (03:56→22:36)
[2018-01-02] MEDS: Morphine VIAL* 4 MG/ML VIAL (1 ml vial) IV SCH ×4 (03:56→22:38)
[2018-01-02] MEDS: Morphine VIAL* 4 MG/ML VIAL (1 ml vial) IV PRN ×4 (04:57→14:20)
[2018-01-02] MEDS: LORazepam INJ* 2 MG/ML 1 ML VIAL IV PUSH PRN ×2 (09:21→12:08)
--- NOTE | 2018-01-02 10:12 | PN ---
Subjective Date of Service: 01/02/18 Interval History: Patient seen and examined at bedside. Pt continues to be non-responsive, but appears to be comfortable. Pt appears to be responding better to IV medications , then he was SL. Family History: Unchanged from Admission Social History: Unchanged from Admission Past Medical History: Unchanged from Admission Objective Active Medications: Acetaminophen (Tylenol Supp*) 650 mg CA Q6H PRN Reason: FEVER/PAIN Atropine Sulfate (Atropine 1% (Oral/Sl)*) 2 drop SL Q2H PRN Reason: DISCOMFORT Lorazepam (Ativan Inj*) 1 mg IV PUSH Q1H PRN Reason: ANXIETY Lorazepam (Ativan Inj*) 1 mg IV PUSH Q6H NORA Morphine Sulfate (Morphine Vial*) 4 mg IV Q6H NORA Morphine Sulfate (Morphine Vial*) 4 mg IV Q2H PRN Reason: PAIN Ondansetron HCl (Zofran Inj*) 4 mg IV Q6H PRN Reason: NAUSEA Vital Signs - 8 hr 01/02/18 01/02/18 01/02/18 03:44 03:56 04:59 Respiratory 26 24 23 Rate 01/02/18 09:21 Respiratory 24 Rate Oxygen Devices in Use Now: None Appearance: NAD, laying in bed Ears/Nose/Mouth/Throat: - - Dry mucous membranes Respiratory: Symmetrical Chest Expansion and Respiratory Effort, - - Rhonchi bilateral Cardiovascular: NL Sounds; No Murmurs; No JVD, RRR Abdominal: NL Sounds; No Tenderness; No Distention Neurological: - - Non-responsive Lines/Tubes/Other Access: Clean, Dry and Intact Peripheral IV - site benign Nutrition: Taking PO's Assess/Plan/Problems-Billing Assessment: Mr. Redd is an 82yo male with a PMH for Rapidly advancing Parkinson's disease , HTN, HLD who has been hospitalized for an extended period with no improvement and has now been transitioned to inpatient hospice care due to agitation requiring IV medication. - Patient Problems (1) End of life care Code(s): Z51.5 - ENCOUNTER FOR PALLIATIVE CARE SNOMED Code(s): 765322814 Comment: - Continue supportive care (2) DVT prophylaxis Code(s): NST7245 - SNOMED Code(s): 690801647 Comment: - Held due to end of life care (3) DNR (do not resuscitate) Status and Disposition: Inpatient hospice.
[2018-01-02] MEDS: Atropine 1% (ORAL/SL)* 15 ML BTL SL PRN ×2 (12:08→15:11)
[2018-01-02] MEDS ORDERED: Morphine VIAL* 4 MG/ML VIAL (1 ml vial) IV PRN (14:47)
--- NOTE | 2018-01-02 15:38 | PN ---
Progress Note - Progress Note Date of Service: 01/02/18 Note: Rounding for hospice nurse today. The patient has noisy respirations, despite administration of atropine, and family needed reassurance that this does not represent any discomfort for the patient. His morphine dose has been liberalized to 4 mg Q one hour to maintain comfort. and daughter at bedside , with appropriate anticipatory grieving. As patient needs IV med administration to maintain comfort, he still requires GIP status. I expect he will not survive more than 48 hours.
[2018-01-03] MEDS: Morphine VIAL* 4 MG/ML VIAL (1 ml vial) IV SCH ×2 (04:27→09:56)
[2018-01-03] MEDS: LORazepam INJ* 2 MG/ML 1 ML VIAL IV PUSH SCH ×2 (05:27→10:04)
--- NOTE | 2018-01-03 14:29 | PN ---
Subjective Date of Service: 01/03/18 Interval History: Patient seen and examined at bedside. Pt appears to be comfortable in bed with shallow respirations. Pt continues to require IV medications for symptom control. Family History: Unchanged from Admission Social History: Unchanged from Admission Past Medical History: Unchanged from Admission Objective Active Medications: Acetaminophen (Tylenol Supp*) 650 mg NE Q6H PRN Reason: FEVER/PAIN Atropine Sulfate (Atropine 1% (Oral/Sl)*) 2 drop SL Q2H PRN Reason: DISCOMFORT Lorazepam (Ativan Inj*) 1 mg IV PUSH Q1H PRN Reason: ANXIETY Lorazepam (Ativan Inj*) 1 mg IV PUSH Q6H NORA Morphine Sulfate (Morphine Vial*) 4 mg IV Q6H NORA Morphine Sulfate (Morphine Vial*) 4 mg IV Q1H PRN Reason: PAIN Ondansetron HCl (Zofran Inj*) 4 mg IV Q6H PRN Reason: NAUSEA Vital Signs - 8 hr 01/03/18 01/03/18 01/03/18 07:42 08:00 09:56 Pulse Rate 90 Respiratory 26 24 26 Rate Oxygen Devices in Use Now: None Appearance: NAD, laying in bed Ears/Nose/Mouth/Throat: - - Dry mucous membranes Respiratory: Symmetrical Chest Expansion and Respiratory Effort, Clear to Auscultation Cardiovascular: NL Sounds; No Murmurs; No JVD, RRR Neurological: - - Nonresponsive Lines/Tubes/Other Access: Clean, Dry and Intact Peripheral IV - site benign Nutrition: Taking PO's Assess/Plan/Problems-Billing Assessment: Mr. Redd is an 82yo male with a PMH for Rapidly advancing Parkinson's disease , HTN, HLD who has been hospitalized for an extended period with no improvement and has now been transitioned to inpatient hospice care due to agitation requiring IV medication. - Patient Problems (1) End of life care Code(s): Z51.5 - ENCOUNTER FOR PALLIATIVE CARE SNOMED Code(s): 156668879 Comment: - Continue supportive care (2) DVT prophylaxis Code(s): BMF0598 - SNOMED Code(s): 125516824 Comment: - Held due to end of life care (3) DNR (do not resuscitate) Status and Disposition: Inpatient hospice, estimated LOS < 2 days.
[2018-01-03] MEDS: Morphine INJ* 2 MG/ML 1 ML CARPUJECT IV PRN ×2 (19:30→21:12)
--- NOTE | 2018-01-04 13:59 | DS ---
CC: Dr. Brooks Turner.* DISCHARGE/ SUMMARY: DATE OF ADMISSION: 12/30/17 DATE OF DISCHARGE: 01/04/18 - . ATTENDING PHYSICIAN: Dr. Kelly Carranza * (dictated by Taya Kay NP). PRIMARY CARE PROVIDER: Dr. Brooks Turner. PRIMARY DIAGNOSIS: End-stage Parkinson's disease. SECONDARY DIAGNOSES: 1. Hypertension. 2. Hyperlipidemia. HISTORY OF PRESENT ILLNESS/HOSPITAL COURSE: Mr. Redd was an 82-year-old male with past medical history significant for Parkinson's disease, hypertension , hyperlipidemia, who initially presented to [facility] on 12/21/17 with reports of progressive altered mental status, weakness and falls. The patient had had a long-term decline consistent with accelerated parkinsonism resulting in hypotension and altered mental status on the day of his presentation. The patient had been having falls at home. He had no signs of infection. He was admitted to the hospital. During his hospitalization, he was minimally responsive and was unable to swallow after the second day of his admission. He had an NG tube placement for Sinemet administration. The patient continued to decline. There was no cause found for his decline. He had workup including a lumbar puncture, urine cultures, blood cultures. He was seen by Neurology who felt that his decline was secondary to his Parkinson's disease. Patient was then seen in consultation by Dr. Ebony Moreno of Palliative Medicine and it was deemed the patient was eligible for hospice and the family preferred to focus on comfort after the patient's daughters had arrived from out of town. It was initially planned for the patient to be discharged home with hospice on 12/30/17; however, he became very agitated and difficult to control, refractory to Ativan and morphine. It was felt that the patient's behaviors would be unable to be controlled without IV medications and he was transitioned to inpatient hospice on 12/30/17. During the patient's hospitalization, he remained comfortable and mostly unresponsive. He was found unresponsive and without a pulse or breathing by ANEESH Zamora on 01/04/18 at 5:43 a.m. In accordance with the patient's DNR, no CPR was initiated. He was pronounced at 5:43 a.m. The patient's Jessica Redd was notified by nursing staff of his passing. No autopsy has been requested. CONDITION AT DISCHARGE: . This is a summarized report of a complex medical history and hospital stay. For further details, please see the entire medical record. TAYA KAY, CARLEEN [id number]/[facility] #: [id number] [facility]GEN[facility]ASSETT HOSPITALEmely
== END 2018-01-04 06:20 | disposition expired | DRG 862 ==
LOC: MED 12:00
PROVIDERS: ADMIT Internal Medicine; ATTEND Family Medicine
DX: Z51.5 Encounter for palliative care (principal); G93.40 Encephalopathy, unspecified; G20 Parkinson's disease; I10 Essential (primary) hypertension; E78.5 Hyperlipidemia, unspecified; Z66 Do not resuscitate; R41.82 Altered mental status, unspecified; I45.10 Unspecified right bundle-branch block; I95.9 Hypotension, unspecified; R33.9 Retention of urine, unspecified; Z79.1 Long term (current) use of non-steroidal anti-inflammatories (NSAID); Z79.891 Long term (current) use of opiate analgesic; Z79.899 Other long term (current) drug therapy
CPT/HCPCS: A9270-GY; J2060; J2270